=== PATIENT | male | born 1965 | race Caucasian/White ===

== ENCOUNTER 2022-12-20 12:32 | Outpatient (OUT) | payer OTHER, SELFPAY ==
[2022-12-20 13:01] LABS: Basophils Absolute Auto 0.1 10^3/uL (0.0-0.1); Eosinophils Absolute Auto 0.2 10^3/uL (0.0-0.7); Eosinophils Percent Auto 2.7 % (0.9-7.0); Hematocrit 34.3 % (42.0-54.0); Hemoglobin 11.3 g/dL (14.0-18.0); Immature Granulocytes Abs Auto 0.02 10^3/uL (0.00-0.03); Immature Granulocytes Pct Auto 0.3 % (0.0-0.5); Lymphocytes Absolute Auto 1.8 10^3/uL (1.2-3.8); Lymphocytes Percent Auto 28.3 % (20.5-60.0); Mean Corpuscular HGB Conc 32.9 g/dL (29.9-35.2); Mean Corpuscular Hemoglobin 30.5 pg (25.9-34.0); Mean Corpuscular Volume 92.5 fL (80.0-94.0); Mean Platelet Volume 9.3 fL (9.5-13.5); Monocytes Absolute Auto 0.4 10^3/uL (0.3-0.8); Monocytes Percent Auto 6.3 % (1.7-12.0); Neutrophils Absolute Auto 3.8 10^3/uL (1.4-6.5); Neutrophils Percent Auto 61.4 % (43.0-75.0); Platelet Count 265 10^3/uL (150-450); Red Blood Count 3.71 10^6/uL (4.70-6.10); Red Cell Distribution Width 13.5 % (11.0-15.0); White Blood Count 6.2 10^3/uL (4.0-11.0)
[2022-12-20 13:27] LABS: Alanine Aminotransferase 21 U/L (16-63); Albumin Globulin Ratio 1.1; Albumin Level 3.4 g/dL (3.4-5.0); Alkaline Phosphatase 93 U/L (46-116); Anion Gap 10.6; Aspartate Amino Transferase 17 U/L (15-37); BUN Creatinine Ratio 13.9; Bilirubin Total 0.3 mg/dL (0.2-1.0); Calcium 8.7 mg/dL (8.5-10.1); Carbon Dioxide 27.2 mmol/L (21.0-32.0); Chloride 107 mmol/L (98-107); Estimated GFR (African America >60 (>=60); Estimated GFR (Non-African Ame >60 (>=60); Globulin 3.2 g/dL; Glucose 87 mg/dL (74-106); Potassium 3.8 mmol/L (3.5-5.1); Sodium 141 mmol/L (136-145); Total Protein 6.6 g/dL (6.4-8.2)
[2022-12-20 14:31] LABS: Erythrocyte Sedimentation Rate 20 mm/hr (<=20)
== END 2022-12-20 12:33 | disposition home or self-care (01) ==
LOC: LAB 12:38
PROVIDERS: PCP Nurse Practitioner Family; Visit Provider Internal Medicine Rheumatology
DX: M19.90 Unspecified osteoarthritis, unspecified site (principal); Z79.899 Other long term (current) drug therapy; L40.50 Arthropathic psoriasis, unspecified
CPT/HCPCS: 36415; 80053; 85025; 85652

== ENCOUNTER 2024-08-03 16:23 | Outpatient (OUT) | payer OTHER, SELFPAY ==
--- NOTE | 2024-08-03 16:41 | XR_ITS ---
[address] [address] Patient Name: LIAN XAVEIR MRN: [id number] date: 1965 Sex: M Assigned Patient Location: RAD Current Patient Location: [facility] Accession/Order Number: [id number] Exam Date: 08/03/2024 16:44 Report Date: 08/03/2024 16:45 At the request of: MALCOM KINCAID Procedure: XR chest 2V Plain film chest Single view HISTORY: Subacute cough COMPARISON: 07/13/2022 FINDINGS: SUPPORT DEVICES: None POSTSURGICAL CHANGES: Wcmaee-t-Txjn unchanged HEART: Within normal limits PULMONARY ROBIN: Within normal limits MEDIASTINUM: Unremarkable LUNGS AND PLEURA: No acute lung process, pleural effusion or pneumothorax identified. BONY STRUCTURES: Intact ADDITIONAL FINDINGS None XR/XR chest 2V IMPRESSION: No acute process. Impression dictated by: Tristin Lott M.D. 08/03/2024 4:45 PM Dictation Location: [place] Electronically authenticated by: [id number] Y Date: 08/03/2024 16:45
== END 2024-08-03 16:24 | disposition home or self-care (01) ==
LOC: RAD 16:31
PROVIDERS: PCP Nurse Practitioner Family; Visit Provider Nurse Practitioner Family
DX: R05.2 Subacute cough (principal)
CPT/HCPCS: 71046

== ENCOUNTER 2024-08-22 11:42 | Emergency (ER) | payer OTHER, SELFPAY ==
--- OUTSIDE RECORDS SUMMARY | 2024-07-31 10:25 | XMS_ITS ---
Author Organization The [facility] in [place] Address [address] [place] [address] Care Team Providers Care Senior Sales Manager Name Role Phone Krystle Quiroz Primary Care Provider [phone] REASON FOR VISIT cough Encounters Encounter Location Date Provider Diagnosis [facility] [address] [place] [address] 07/31/2024 Krystle Quiroz Plan Of Treatment No Information Progress Notes * Miesha MCDONALDOB:1965 (58 yo M)Acc No.[id number]:07/31/2024 Patient: Darrion ANN :1965 A ge:58 Y S ex:Male Address:[address] [place], [address] * true * Date: Generated for Kb singh/Sameer/eTransmitting on: 0 08/22/2024 11:48 AM EDT
--- OUTSIDE RECORDS SUMMARY | 2024-08-03 11:45 | XMS_ITS ---
Author Organization The [facility] in [place] Address [address] [place] [address] Care Team Providers Care Elevator Constructor Helper Name Role Phone Krystle Quiroz Primary Care Provider Allergies Allergen (clinical drug ingredient) Drug/Non Drug Allergy documented on EMR Reaction Allergy Type Onset Date Status Chantix (varenicline) Unknown Drug Allergy Active Results Component Value Reference Range Notes XR chest 2V Reviewed date:08/04/2024 08:52:47 AM Interpretation: Performing Lab: Notes/Report: Source Facility: [place] [id number] XRay Report Signed Patient: LIAN MCDONALD MR#: [id number] : 1965 Acct:[id number] Age/Sex: 58 / M ADM Date: 08/03/24 Loc: RAD Attending Dr: KRYSTLE QUIROZ Ordering Physician: KRYSTLE QUIROZ Date of Service: 08/03/24 Procedure(s): XR chest 2V Accession Number(s): [id number] cc: KRYSTLE QUIROZ [place] [id number] Patient Name: LIAN MCDONALD MRN: [id number] date: 1965 Sex: M Assigned Patient Location: RAD Current Patient Location: RAD Accession/Order Number: [id number] Exam Date: 08/03/2024 16:44 Report Date: 08/03/2024 16:45 At the request of: KRYSTLE QUIROZ Procedure: XR chest 2V Plain film chest Single view HISTORY: Subacute cough COMPARISON: 07/13/2022 FINDINGS: SUPPORT DEVICES: None POSTSURGICAL CHANGES: Kibvea-d-Dvmh unchanged HEART: Within normal limits PULMONARY ROBIN: Within normal limits MEDIASTINUM: Unremarkable LUNGS AND PLEURA: No acute lung process, pleural effusion or pneumothorax identified. BONY STRUCTURES: Intact ADDITIONAL FINDINGS None XR/XR chest 2V IMPRESSION: No acute process. Impression dictated by: Tristin Lott M.D. 08/03/2024 4:45 PM Dictation Location: [place] [address] Electronically authenticated by: [id number] Y Date: 08/03/2024 16:45 Dictated By: Tristin Lott D.O. Signed By: 08/03/241647 DD/ 44 TD/TT: Vp Account Director: [place] [address] XRay Report Signed Patient: BRENNEN MCDONALD MR#: [id number] : 1965 Acct:[id number] Age/Sex: 58 / M ADM Date: 08/03/24 Loc: RAD Attending Dr: KRYSTLE QUIROZ Ordering Physician: KRYSTLE QUIROZ Date of Service: 08/03/24 Procedure(s): XR chest 2V Accession Number(s): [id number] cc: KRYSTLE QUIROZ [place] [address] Patient Name: LIAN MCDONALD MRN: [id number] date: 1965 Sex: M Assigned Patient Location: RAD Current Patient Location: RAD Accession/Order Numb er: [id number] Exam Date: 08/03/2024 16:44 Report Date: 08/03/2024 16:45 At the request of: KRYSTLE QUIROZ Procedure: XR chest 2V Plain film chest Single view HISTORY: Subacute cough COMPARISON: 07/13/2022 FINDINGS: SUPPORT DEVICES: None POSTSURGICAL CHANGES : Fvpdtt-w-Dkvz unchanged HEART: Within normal limits PULMONARY ROBIN: With in normal limits MEDIASTINUM: Unremarkable LUNGS AND PLEURA: No acute lung process, pleural effusion or pneumothorax identified. BONY STRUCTURES: Intact ADDITIONAL FINDINGS None X R/XR chest 2V IMPRESSION: No acute process. Impression dictated by: Tristin Lott M.D. 08/03/2024 4:45 PM Dictation Location: [place] [address] [facility] auth nticated by: [id number] Y Date: 08/03/2024 16:45 Dictated By: Tristin Lott D.O. Signed By: 08/03/241647 DD/ 44 TD/TT: Vp Account Director: Reason For Referral Reason arthritis Diagnosis 1 Arthritis (M19.90) Diagnosis 2 Psoriasis (L40.9) Referral Organization [facility] Referring Provider First Name Krystle Referring Provider Last Name Richie Referring Provider Speciality Family Med ayse Referred Provider Vinod Corado Jr Referred Provider Specialty Rheumatology Referral Priority Routine REASON FOR VISIT cough meds not working Social History Tobacco Use: Social History Observation Description Date Details (start date - stop date) Former Smoker NA - NA Tobacco Control (Standard) Question Answer Notes Tobacco use: Former smoker How long has it been since you last smoked? 5-10 years Problems Problem Type SNOMED Code ICD Code Onset Dates Problem Status W/U Status Risk Notes Problem Arthritis (2301260) Arthritis (M19.90) Active confirmed Problem Psoriasis (2945105) Psoriasis (L40.9) Active confirmed Vital Signs Weight 180 lbs 08/03/2024 Height 5ft 9.5in in 08/03/2024 Blood pressure systolic 144 mm Hg 08/04/19 25 Blood pressure diastolic 84 mm Hg 025 BMI 26.2 kg/m2 08/03/2024 Encounters Encounter Location Date Provider Diagnosis [facility] [address] [place] [address] 08/03/2024 Krystle Quiroz Subacute cough R05.2 ; Arthritis M19.90 and Psoriasis L40.9 Assessments Encounter Date Diagnosis (ICD Code) Assessment Notes Treatment Notes Treatment Clinical Notes Section Notes 08/03/2024 Subacute cough (ICD-10 - R05.2) worse when talks no coughing when watching tv, sleeping at night ENT next? 08/03/2024 Arthritis (ICD-10 - M19.90) 08/03/2024 Psoriasis (ICD-10 - L40.9) 08/03/2024 Other referral [facility] Plan Of Treatment Treatment Notes Assessment Notes Subacute cough worse when talks no coughing when watching tv, sleeping at night ENT next? Other referral [facility] Referrals Referral Date Details 08/04/2024 08/04/2024, linavivian margyVinod Jr [facility] Next Appt Details Follow Up: prn, Reason: Progress Notes * Miesha MCDONALDOB:1965 (58 yo M)Acc No.[id number]:08/03/2024 Progress Note Patient: Lian ANN Provider: Katherine Quiroz ([facility]), ADVERTISING MANAGER :1965 A ge:58 Y S ex:Male Date:08/03/2024 Address:[address] [place] [address] [place], [place] Check In:03:37 PM ESTCheck O ut:04:12 PM EST Subjective: * Chief Complaints: * 1 . Cough meds not working. * HPI: G eneral: Patient presents with c/o dry-hacky cough since June. He has taken multiple rounds of abx, steroids and cough supressants and nothing has worked. He also states he noticed a big improvement with his artritis pain when taking the steroids for the cough and would like to discuss that. lastly he is requesting a derm consult fo rhis psoriasis. * ROS: E ENT: sore throat d enies. n rosy congestion d enies.?ear ache d enies. P ost nasal drainage d enies. G eneral/Constitutional: Sweats: D enies. F atigue d enies. F atigue or Weakness d enies. F ever or Chills d enies. C ardiovascular: Shortness of Breath w/lying flat d enies. S welling of Feet/Ankles/Hands d enies. L ightheadedness/dizziness d enies. C hest tightness/ heavy pressure d enies. S welling of legs, ankles, or feet d enies. W aking up with shortness of breath d enies. C hest pain d enies. P alpitations d enies. R espiratory: Chronic or frequent cough a dmits. P roductive cough d enies. C hest pain d enies. S putum production d enies. W heezing d enies. M usculoskeletal: Joint pain a dmits. J oint Stiffness a dmits, Normal from arthirtis. W eakness of muscles d enies. A rthritis a dmits hands and feet. * Active Problem List M19.90 Arthritis Modified On:08/04/2024W/U Status:confirmed L40.9 Psoriasis Modified On:08/04/2024W/U Status:confirmed * Medical History: H istory of fracture left wrist x 2, History of psoriasis, History of urinary calculus, History of arthralgias in multiple sites, Colostomy. * Surgical History: H istory of cystoscopy 1996 , History of vasectomy 1995 . * Hospitalization/Major Diagno stic Procedure: D enies Past Hospitalization. * Family History: M igrated Family History:: Family history of heart disease;Family history of cancer;. * Social History: T obacco Use: T obacco Control (Standard) T obacco use: F ormer smoker H ow long has it been since you last smoked??5-10 years * Medications: D iscontinued Azithromycin 250 MG Tablet 2 tabs today then 1 tab Orally daily , Discontinued Benzonatate 200 MG Capsule 1 capsule as needed Orally Three times a day , Discontinued Cephalexin 500 MG Capsule 2 capsule Orally BID , Discontinued predniSONE 20 MG Tablet 3 tablets Orally Once a day , Medication List reviewed and reconciled with the patient * Allergies: C hantix (varenicline): Allergy. Objective: * Vitals: W t:180lbs, Ht: 5ft 9.5in, BP:144/84mm Hg, BMI:26.2Index, Ht-cm: 176.53 cm, Wt-k.65 kg. * Examination: P hysical Exam: GENERAL: w ell developed, well nourished, in no acute distress. HEAD: n ormocephalic/atraumatic. EYES: p upils equal, round and reactive to light, conjunctivae and sclerae normal. NOSE: n o deformity, discharge, inflammation, or lesions.? LUNGS: n ormal respiratory effort and clear to auscultation, no wheezes, rales, or rhonchi, good air exchange. CARDIO: r egular rate and rhythm, normal S1 and S2. PULSES: n ormal capillary refill. NEUROLOGIC: g rossly normal. SKIN: p soriasis patches to knees and elbows. MENTAL STATUS: a lert and oriented x3, normal mood and affect. Assessment: * Assessment: 1. S ubacute cough - R05.2 (Primary) 2 . A rthritis - M19.90 ?3. P soriasis - L40.9 Plan: * Treatment: 2. A rthritis Referral To:Vinod Esparza [facility] Reason:arthritis 3. P soriasis Referral To:Vinod Esparza [facility] Reason:arthritis 4. O thers Notes: referral [facility] * Preventive Medicine: Screenings/Counseling: B UT ACTION PLAN Above Normal BMI Follow-up D ietary management education, guidance, and counseling * Follow Up: p rn * * Electronically signed by Skye Quiroz , SHERICE, S IRON WORKER.ADVERTISING MANAGER.[id number] on 08/04/2024 at 03:59 PM EDT Sign off status: Completed Visit Status: C HK (Check Out) true * Provider: Katherine Quiroz ([facility]), ADVERTISING MANAGER Date: 0 08/03/2024 Generated for Kb singh/Sameer/Laxmiitting on: 0 08/22/2024 11:49 AM EDT History and Physical Notes * HPI (History of Present Illness) Category Sub-Category Detail Notes Category Not es General Patient present s with c/o dry-hacky cough since June. He has taken multiple rounds of abx, steroids and cough supressants and nothing has worked. He also states he noticed a big improvement with his artritis pain when taking the steroids for the cough and would like to discuss that. lastly he is requesting a derm consult fo rhis psoriasis. Examination Category Sub-Category Detail Notes Category Not es Physical Exam GENERAL: well developed, well nourished, in no acute distress HEAD: normocephalic/atraum atic EYES: pupils equal, round and reactive to light, conjunctivae and sclerae normal NOSE: no deformity, discha rge, inflammation, or lesions NECK: CHEST: LUNGS: normal respiratory e ffort and clear to auscultation, no wheezes, rales, or rhonchi, good air exchange CARDIO: regular rate and rhy thm, normal S1 and S2 PULSES: normal capillary ref ill MUSCULOSKELETAL: EXTREMITY: NEUROLOGIC: grossly normal SKIN: psoriasis patches to knees and elbows LYMPH NODES: MENTAL STATUS: alert and oriented x 3, normal mood and affect Consultation Request Notes Referral Date Referring Provider Referred Provider Not es 08/04/2024 Krystle Quiroz David Jr arthr itis
[2024-08-22] VITALS (12 sets, daily range): BP systolic 147–150; BP diastolic 88–95; PULSE 65–100; TEMP 36.3; O2SAT 94–100; BMI 24.4
--- OUTSIDE RECORDS SUMMARY | 2024-08-22 11:48 | XMS_ITS | Encounter Summary ---
Author Organization [facility] Address [address] [place], [place] [address] Care Team Providers Care Channel Development Manager Name Role Phone Nhan Lorenzo Primary Care Provider Source Comments In the event this information is protected by the Federal Confidentiality of Alcohol and Drug AbusePatient Records regulations: The Federal rules restrict any use of the information to criminally investigate or prosecute any alcohol or drug abuse patient.[facility] Encounter Details Date Type Department Care Team (Late st Contact Info) Description 07/07/2024 Patient Msg Hematology/Oncology [address] [facility] [place] [place], [place] [id number] Mohit Mann MD [address] [place], [facility] Appointment Cancellation Request Social History Tobacco Use Types Packs/Day Years Used Date Smoking Tobacco: Former Cigarettes 1.5 22 Smokeless Tobacco: Current Snuff Alcohol Use Standard Drinks/Week Comments Yes 8 (1 standard drink = 0.6 oz pur e alcohol) daily PHQ-2 Answer Date Recorded PHQ-2 score 0 05/16/2018 Area Deprivation Index Answer Date Willis rded National Score (1-100), lower number is lower ri sk Not on file 02/08/2020 State Score (1-10), lower number is lower risk N ot on file 02/08/2020 Data from: https://www.neighborhoodatlas.medicine.[facility].edu/. Last address used for calculation Not on file 02/08/2020 Sex and Gender Information Value Date Recorded Sex Assigned at Male 06/12/2023 5:12 PM EDT Legal Sex Male 2:58 PM EST Gender Identity Male 06/12/2023 5:12 PM EDT Sexual Orientation Straight 06/12/2023 5: 12 PM EDT documented as of this encounter Functional Status * Are you deaf or do you have serious difficulty hearing? Answer Date of Assessment Author No 08/08/2016 12:26 PM EDT Margaret Bowden RN * Are you blind or do you have serious difficulty seeing, even when wearing glasses? Answer Date of Assessment Author No 08/08/2016 12:26 PM EDT Margaret Bowden RN * Do you have serious difficulty walking or climbing stairs? Answer Date of Assessment Author No 08/08/2016 12:26 PM EDT Margaret Bowden RN * Do you have difficulty dressing or bathing? Answer Date of Assessment Author No 08/08/2016 12:26 PM EDT Margaret Bowden RN * Because of a physical, mental, or emotional condition, do you have difficulty doing errands alone such as visiting a doctor's office or shopping? Answer Date of Assessment Author No 08/08/2016 12:26 PM EDT Margaret Bowden RN documented as of this encounter Mental Status * Because of a physical, mental, or emotional condition, do you have serious difficulty concentrating, remembering, or making decisions? Answer Entry Date Author No 08/08/2016 12:26 PM TERAT Margaret Bowden RN documented in this encounter Plan of Treatment Not on file documented as of this encounter Visit Diagnoses Not on filedocumented in this encounter Care Teams Channel Development Manager Relationship Specialty Start Date End Date Nhan Lorenzo DO PCP - General Family Medicine 03/20/16 documented as of this encounter
--- OUTSIDE RECORDS SUMMARY | 2024-08-22 11:48 | XMS_ITS | Patient Health Record ---
Author Organization The [facility] in [place] Address [address] [place] [address] Care Team Providers Care Street Car Mechanic Name Role Phone Krystle Quiroz Primary Care Provider Ramon Hanson [phone] Allergies Allergen (clinical drug ingredient) Drug/Non Drug Allergy documented on EMR Reaction Allergy Type Onset Date Status Chantix (varenicline) Unknown Drug Allergy Active Results Component Value Reference Range Notes XR chest 2V Reviewed date:08/04/2024 08:52:47 AM Interpretation: Performing Lab: Notes/Report: Source Facility: [address] [address] XRay Report Signed Patient: LIAN MCDONALD MR#: [id number] : 1965 Acct:[id number] Age/Sex: 58 / M ADM Date: 08/03/24 Loc: RAD Attending Dr: KRYSTLE QUIROZ Ordering Physician: KRYSTLE QUIROZ Date of Service: 08/03/24 Procedure(s): XR chest 2V Accession Number(s): [id number] cc: KRYSTLE QUIROZ [place] [id number] Patient Name: LIAN MCDONALD MRN: [id number] date: 1965 Sex: M Assigned Patient Location: RAD Current Patient Location: RAD Accession/Order Number: [id number] Exam Date: 08/03/2024 16:44 Report Date: 08/03/2024 16:45 At the request of: KRYSTLE QUIROZ Procedure: XR chest 2V Plain film chest Single view HISTORY: Subacute cough COMPARISON: 07/13/2022 FINDINGS: SUPPORT DEVICES: None POSTSURGICAL CHANGES: Anuzxq-d-Urml unchanged HEART: Within normal limits PULMONARY ROBIN: Within normal limits MEDIASTINUM: Unremarkable LUNGS AND PLEURA: No acute lung process, pleural effusion or pneumothorax identified. BONY STRUCTURES: Intact ADDITIONAL FINDINGS None XR/XR chest 2V IMPRESSION: No acute process. Impression dictated by: Tristin Lott M.D. 08/03/2024 4:45 PM Dictation Location: [place] [address] Electronically authenticated by: [id number] Y Date: 08/03/2024 16:45 Dictated By: Tristin Lott D.O. Signed By: 08/03/241647 DD/ 44 TD/TT: Slicer Machine Operator: [place] [address] XRay Report Signed Patient: BRENNEN MCDONALD MR#: [id number] : 1965 Acct:[id number] Age/Sex: 58 / M ADM Date: 08/03/24 Loc: RAD Attending Dr: KRYSTLE QUIROZ Ordering Physician: KRYSTLE QUIROZ Date of Service: 08/03/24 Procedure(s): XR chest 2V Accession Number(s): [id number] cc: KRYSTLE QUIROZ [address] [address] Patient Name: LIAN MCDONALD MRN: [id number] date: 1965 Sex: M Assigned Patient Location: [facility] Current Patient Location: RAD Accession/Order Numb er: [id number] Exam Date: 08/03/2024 16:44 Report Date: 08/03/2024 16:45 At the request of: KRYSTLE QUIROZ Procedure: XR chest 2V Plain film chest Single view HISTORY: Subacute cough COMPARISON: 07/13/2022 FINDINGS: SUPPORT DEVICES: None POSTSURGICAL CHANGES : Rwhomh-r-Lmeq unchanged HEART: Within normal limits PULMONARY ROBIN: With in normal limits MEDIASTINUM: Unremarkable LUNGS AND PLEURA: No acute lung process, pleural effusion or pneumothorax identified. BONY STRUCTURES: Intact ADDITIONAL FINDINGS None X R/XR chest 2V IMPRESSION: No acute process. Impression dictated by: Tristin Lott M.D. 08/03/2024 4:45 PM Dictation Location: [place] [address] [facility] aut[facility] nticated by: [id number] Y Date: 08/03/2024 16:45 Dictated By: Tristin Lott D.O. Signed By: 08/03/241647 DD/ 44 TD/TT: Slicer Machine Operator: Reason For Referral Reason arthritis Diagnosis 1 Arthritis (M19.90) Diagnosis 2 Psoriasis (L40.9) Referral Organization [facility] Referring Provider First Name Krystle Referring Provider Last Name Richie Referring Provider [facility] ayse Referred Provider Vinod Corado Jr Referred Provider Specialty Rheumatology Referral Priority Routine Social History Tobacco Use: Social History Observation Description Date Details (start date - stop date) Former Smoker NA - NA Tobacco Control (Standard) Question Answer Notes Tobacco use: Former smoker How long has it been since you last smoked? 5-10 years AUDIT-C (Standard) Question Answer Notes Did you have a drink containing alcohol in the p ast year? No Points 0 Interpretation Negative Problems Problem Type SNOMED Code ICD Code Onset Dates Problem Status W/U Status Risk Notes Problem Psoriasis (4971827) Psoriasis (L40.9) Active confirmed Problem Arthritis (6280844) Arthritis (M19.90) Active confirmed Vital Signs Blood pressure diastolic 84 mm Hg 08/03/2024 Height 5ft 9.5in in 08/03/2024 Blood pressure systolic 144 mm Hg 08/03/2024 Weight 180 lbs 08/03/2024 BMI 26.2 kg/m2 08/03/2024 Encounters Encounter Location Date Provider Diagnosis [facility] [address] [place] [address] 07/13/2024 Ramon Hanson [facility] [address] [place] [address] 07/24/2024 Krystle Quiroz [facility] [address] [place] [address] 07/31/2024 Krystle Quiroz [facility] [address] [place] [facility] [address] 08/04/2024 Krystle Quiroz [facility] [address] [place] [facility] [place] [address] 07/08/2024 Ramon Hanson Acute bronchitis, unspecified organism J20.9 [facility] [address] [place] [facility] [place] [address] 08/03/2024 Krystle Quiroz Subacute cough R05.2 ; Arthritis M19.90 and Psoriasis L40.9 Assessments Encounter Date Diagnosis (ICD Code) Assessment Notes Treatment Notes Treatment Clinical Notes Section Notes 07/08/2024 Acute bronchitis, unspecified organism (ICD-10 - J20.9) Rest and drink more liquids, especially water. You may use a humidifier or vaporizer to help keep the drainage moist. Zlqt-wqh-fvzfyzi Nasal Saline may help the stuffy and runny nose. Use Ibuprofen and or Tylenol as needed for fever, chills, body aches or pain. Children 5 years old should not be given pcnk-oer-atclfhf cough and cold medications such as guaifenesin and dextromethorphan. If you're over age 5, you may try dfnr-rcq-yefkzxz cold medications such as guaifenesin and dextromethorphan, or multi-symptom cold reliever such as Dayquil to help reduce the symptoms. Antibiotics have been prescribed. You should take these until completed and follow the directions. Antibiotics can sometimes cause upset stomach, and in rare cases, serious allergic reactions or serious gastrointestinal problems. If you start having severe abdominal pain, severe vomiting, or bloody diarrhea, you should be reevaluated by your physician or urgent care immediately. Follow up with your Primary Care Provider or return to clinic if symptoms do not improve within 3-5 days. If you develop severe symptoms such as shortness of breath, repeated vomiting, coughing up blood, or chest pain you should go to the emergency room or call 911 08/03/2024 Subacute cough (ICD-10 - R05.2) worse when talks no coughing when watching tv, sleeping at night ENT next? 08/03/2024 Arthritis (ICD-10 - M19.90) 08/03/2024 Psoriasis (ICD-10 - L40.9) 08/03/2024 Other referral [facility] Plan Of Treatment No Information Insurance Providers Payer Name Payer Address Payer Phone Subscriber Number Group Number Insured Name Patient Relationship to Insured Coverage Start Date Coverage End Date [employer] [address] [place] [phone] [id number] Lian Mcdonald Self - patient is the insured Medical (General) History Medical History History ICD Code History of fracture left wrist x 2 History of psoriasis History of urinary calculus History of arthralgias in multiple sites colostomy Surgical History Surgery Date(Month/Year) History of cystoscopy 1996 History of vasectomy 1996
--- OUTSIDE RECORDS SUMMARY | 2024-08-22 11:48 | XMS_ITS | Clinical Summary ---
Author Organization [facility] Address [address] [place] [address] Care Team Providers Care Lifeguard Name Role Phone Nhan Lorenzo DO Primary Care Provider [phone] Social History Tobacco Use Types Packs/Day Years Used Date Smoking Tobacco: Never Assessed Sex and Gender Information Value Date Recorded Sex Assigned at Not on file Legal Sex Male 10:58 AM EST Gender Identity Not on file Sexual Orientation Not on file Plan of Treatment Not on file Insurance [employer] Care Teams Lifeguard Relationship Specialty Start Date End Date Nhan Lorenzo DO [address] [place], [place] [id number] PCP - General Family Medicine 12/30/19
--- OUTSIDE RECORDS SUMMARY | 2024-08-22 11:49 | XMS_ITS ---
Author Organization [facility] Address [address] [place], [place] [id number] Care Team Providers Care Rap Artist Name Role Phone Nhan Lorenzo DO Primary Care Provider Active Problems Problem Noted Date Diagnosed Date Post-op pain 08/08/[address] 08/08/2016 Rectal cancer 04/05/2016 Current Treatment and Therapy Plans No current plan information found. Past Treatment and Therapy Plans ONCOLOGY REGIMEN Plan Name Start Date Discontinue Date Treatment Medications Discontinue Reason Plan Provider Cycles MODIFIED FOLFOX 6 - OXALIPLATIN 85 D1 5FU 400 IVP D1 5FU 2400 CADD OVER 46 HRS - Q14D 09/12/19 17 01/20/2017 fluorouracil (ADRUCIL)fluorouracil iv infusion CASSETTE (ADRUCIL)with rateleucovorin iv piggybackoxaliplatin iv piggyback in D5W 500 mL (ELOXATIN) Not Tolerated Benny Das 6 of 12 cycles started
--- OUTSIDE RECORDS SUMMARY | 2024-08-22 11:49 | XMS_ITS | Encounter Summary ---
Author Organization [facility] Address [address] [place] [address] Care Team Providers Care Concrete Floater Name Role Phone Bj, Nhan Avalos DO Primary Care Provider Source Comments In the event this information is protected by the Federal Confidentiality of Alcohol and Drug AbusePatient Records regulations: The Federal rules restrict any use of the information to criminally investigate or prosecute any alcohol or drug abuse patient.[facility] Encounter Details Date Type Department Care Team (Late st Contact Info) Description 08/22/2017 Patient Msg Hematology/Oncology [address] [place] [address] [place] [address] Benny Das [address] [place] [id number] RE: Appointment Cancellation Request Social History Tobacco Use Types Packs/Day Years Used Date Smoking Tobacco: Former Cigarettes 1.5 22 Smokeless Tobacco: Current Snuff Alcohol Use Standard Drinks/Week Comments Yes 8 (1 standard drink = 0.6 oz pur e alcohol) daily Sex and Gender Information Value Date Recorded [...] on filedocumented in this encounter Care Teams Concrete Floater Relationship Specialty Start Date End Date Nhan Lorenzo DO PCP - General Family Medicine 03/20/16 documented as of this encounter
--- OUTSIDE RECORDS SUMMARY | 2024-08-22 11:49 | XMS_ITS | Clinical Summary ---
Author Organization [facility] Address [address] [place] [address] Care Team Providers Care Block Sawyer Name Role Phone Unavailable Primary Care Provider Unavailabl e Social History Tobacco Use Types Packs/Day Years Used Date Smoking Tobacco: Never Assessed Sex and Gender Information Value Date Recorded Sex Assigned at Not on file Legal Sex Male 7:38 PM EDT Gender Identity Not on file Sexual Orientation Not on file Last Filed Vital Signs Vital Sign Reading Time Taken Comments Blood Pressure 132/80 10/19/2020 12:00 PM EDT Pulse - - Temperature - - Respiratory Rate - - Oxygen Saturation - - Inhaled Oxygen Concentration - - Weight 78 kg (172 lb) 10/19/2020 12:00 PM EDT Height 175.3 cm (5' 9 ) 10/19/2020 12:00 PM EDT Body Mass Index 25.4 10/19/2020 12:00 PM EDT Plan of Treatment Not on file
--- OUTSIDE RECORDS SUMMARY | 2024-08-22 11:49 | XMS_ITS | Encounter Summary ---
Author Organization [facility] Address [address] [place] [address] Care Team Providers Care Compliance Investigator Name Role Phone BjNhan DO Primary Care Provider Source Comments In the event this information is protected by the Federal Confidentiality of Alcohol and Drug AbusePatient Records regulations: The Federal rules restrict any use of the information to criminally investigate or prosecute any alcohol or drug abuse patient.[facility] Encounter Details Date Type Department Care Team (Late st Contact Info) Description 08/22/2017 Patient Msg Hematology/Oncology [address] [place] [address] [place] [address] Benny Das [address] [place], [place] [id number] Appointment Cancellation Request Social History Tobacco Use [...] on filedocumented in this encounter Care Teams Compliance Investigator Relationship Specialty Start Date End Date Nhan Lorenzo DO PCP - General Family Medicine 03/20/16 documented as of this encounter
--- OUTSIDE RECORDS SUMMARY | 2024-08-22 11:49 | XMS_ITS | Clinical Summary ---
Author Organization [facility] Address [address] [place] [address] Care Team Providers Care Silver Designer Name Role Phone Bj, Nhan Robbie Primary Care Provider Allergies No known active allergies Medications acetaminophen (TYLENOL EXTRA STRENGTH) 500 mg tablet Take 500 mg by mouth every 8 hours as needed. Active iv contrast (will be provided with radiology test) CT Chest ABD/PEL-Inject, intravenously, once for 1 dose.No IV access, insert saline lock prior to the beginning of sedation, infusion, injection of imaging exam. Discontinue saline lock post exam. If Pt. has a central line or IVAD, may access for administration according to line specific nursing protocol. Once exam is complete flush line and de-access according to line specific nursing protocol in the CT contrast administration guidelines link. 1 Each 0 Active enteric contrast (will be provided with radiology test) For CT CHESTABD/PEL W IVCON Routine order Administer, As Directed One Time Only, via Oral, Rectal, both Oral and Rectal, Enteric Tube, Stoma or Indwelling Catheter, Enteric Contrast as designated per enteric contrast guidelines 1 Each 0 Active Active Problems Problem Noted Date Diagnosed Date Post-op pain 08/08/[address] 08/08/2016 Rectal cancer 04/05/2016 Encounters Date Type Department Care Team Description 07/07/2024 Patient Msg Hematology/Oncology [address] [facility] [place] [address] Mohit Mann MD Appointment Cancellation Request from Last 3 Months Family History Medical History Relation Comments Cancer Father Bladder Colon Cancer Mother d. 70 esophageal cancer Paternal Grandfather Relation Status Comments Brother Alive Daughter 1 Alive Daughter 2 Alive Father Maternal Grandfather Maternal Grandmother Mother Paternal Grandfather Paternal Grandmother Sister 1 Alive Sister 2 Alive Social History Tobacco Use Types Packs/Day Years [...] N ot on file 02/08/2020 Data from: https://[email or web address].[email or web address]/. Last address used for calculation Not on file 02/08/2020 Sex and Gender Information Value Date Recorded Sex Assigned at Male 06/12/2023 5:12 PM EDT Legal Sex Male 2:58 PM EST Gender Identity Male 06/12/2023 5:12 PM EDT Sexual Orientation Straight 06/12/2023 5: 12 PM EDT Last Filed Vital Signs Vital Sign Reading Time Taken Comments Blood Pressure 162/88 12/18/2019 3:16 PM EDT Pulse 74 12/18/2019 3:16 PM EDT Temperature 36.2 C (97.1 F) 12/18/2019 3:16 PM EDT Respiratory Rate 18 12/18/2019 3:16 PM EDT Oxygen Saturation 100% 12/18/2019 3:16 PM EDT Inhaled Oxygen Concentration - - Weight 77.3 kg (170 lb 6.4 oz) 12/18/2019 3:16 P M EDT Height 177.4 cm (5' 9.84 ) 12/18/2019 3:16 PM ED T Body Mass Index 24.56 12/18/2019 3:16 PM EDT Plan of Treatment Health Maintenance Due Date Last Done Comments Anxiety Screening 1984 Depression Screening 1984 HIV Screening 1984 Hepatitis C Screening 1984 DTaP,Tdap,Td Vaccine (1 - Tdap) 1985 Hepatitis B Vaccine (1 of 3 - 19+ 3-dose series) [address] Colonography 10/04/2011 Cologuard (FIT-DNA) 10/04/2011 Colonoscopy 10/04/2011 Fecal Occult Blood 10/04/2011 Prostate Cancer Screening Discussion 10/04/2011 Pneumococcal Vaccine: 50+ (1 of 1 - PCV) 2016 Shingrix Vaccine (1 of 2) 2016 Colorectal Cancer Screening 04/11/2021 Sigmoidoscopy 04/11/2021 04/11/2016 Diabetes Screening 12/17/2022 12/18/2019, 0 05/16/2018, 09/25/2016, Additional history exists Covid-19 Vaccine (2023-2 5 season) 2023 Influenza Vaccine (Season Ended) 2024 Procedures Procedure Name Priority Date/Time Associated Diagnosis Comments COMPREHENSIVE METABOLIC PANEL Routine 12/18/2019 3:12 PM EDT Rectal cancer (HCC) SIGMOIDOSCOPY 04/11/2016 9:47 AM EST from Last 3 Months or Most Recently Relevant to Health Maintenance Results * (ABNORMAL) COMP METABOLIC PANEL (12/18/2019 3:12 PM EDT) Protein, Total 7.4 6.3 - 8.0 g/dL 12/18/2019 3:39 PM EDT [facility] Albumin 4.6 3.9 - 4.9 g/dL 12/18/2019 3:39 PM EDT [facility] Calcium 10.0 8.5 - 10.2 mg/dL 12/18/2019 3:39 PM EDT [facility] Bilirubin, Total 0.4 0.2 - 1.3 mg/dL 12/18/2019 3:39 PM EDT [facility] Alkaline Phosphatase 122(H) 38 - 113 U/L 12/18/2019 3:39 PM EDT [facility] AST 17 14 - 40 U/L 12/18/2019 3:39 PM EDT [facility] Glucose 114(H) 74 - 99 mg/dL 12/18/2019 3:39 PM T [facility] Comment: The [place] Diabetes Association (ADA) provides guidance for cutoff values for fasting glucose and random glucose. The ADA defines fasting as no caloric intake for at least 8 hours. Fasting plasma glucose results between 100 to 125 mg/dL indicate increased risk for diabetes (prediabetes). Fasting plasma glucose results greater than or equal to 126 mg/dL meet the criteria for diagnosis of diabetes. In the absence of unequivocal hyperglycemia, results should be confirmed by repeat testing. In a patient with classic symptoms of hyperglycemia or hyperglycemic crisis, random plasma glucose results greater than or equal to 200 mg/dL meet the criteria for diagnosis of diabetes. Reference: Standards of Medical Care in Diabetes 2016, [place] [employer] Association. Diabetes Care. 2016.39(Suppl 1). BUN 13 9 - 24 mg/dL 12/18/2019 3:39 PM T [facility] Creatinine 0.88 0.73 - 1.22 mg/dL 12/18/2019 3:39 PM T [facility] Sodium 141 136 - 144 mmol/L 12/18/2019 3:39 PM EDT [facility] Potassium 4.2 3.7 - 5.1 mmol/L 12/18/2019 3:39 PM T [facility] Chloride 103 97 - 105 mmol/L 12/18/2019 3:39 PM EDT [facility] CO2 28 22 - 30 mmol/L 12/18/2019 3:39 PM T [facility] Anion Gap 10 9 - 18 mmol/L 12/18/2019 3:39 PM [facility] ALT 18 10 - 54 U/L 12/18/2019 3:39 PM EDT [facility] eGFR- >60 12/18/2019 3:39 PM [facility] eGFR-All Other Races >60 . 12/18/2019 3:39 PM [facility] Comment: eGFR (Estimated GFR) Units of measure: mL/min/1.73 meters squared eGFR is derived from the reexpressed MDRD Study equation using the following parameters: serum creatinine, age, gender and race. The creatinine assay has been calibrated to be traceable to IDMS. An eGFR <60 mL/min/1.73m2 for >3 months is consistent with chronic kidney disease. Refer to KDOQI guidelines for clinical interpretation. In patients with unstable renal function, e.g. those with acute kidney injury, the eGFR may not accurately reflect actual GFR. Blood BLOOD SPECIMEN / Unknown 12/18/2019 3:12 PM EDT 12/18/2019 3:14 PM EDT Angel Bello MD LABORATORY Final Result [address] [address] [facility] [address] * SIGMOIDOSCOPY (04/11/2016 9:47 AM EST) Rig Hand A30 Gastrointestinal Endoscopy Patient Name: Darrion Mcdonald Procedure Date: 04/11/2016 9:47 AM Date of : 1965 Admit Type: Outpatient Age: 50 Gender: Male Note Status: Finalized Attending MD: Emigdio Martin MD Sedation Initiated: None Administered Procedure: Flexible Sigmoidoscopy Indications: Hematochezia Comorbidities No comorbidities Providers: Emigdio Martin MD Patient Profile: This is a 50 year old male. Referring Physician: Medicines: None Complications: No immediate complications. Requesting Provider: Procedure: Pre-Anesthesia Assessment: - Prior to the procedure, a History and Physical was performed, and patient medications and allergies were reviewed. The patient's tolerance of previous anesthesia was also reviewed. The risks and benefits of the procedure and the sedation options and risks were discussed with the patient. All questions were answered, and informed consent was obtained. Prior Anticoagulants: The patient has taken no previous anticoagulant or antiplatelet agents. ASA Grade Assessment: II - A patient with mild systemic disease. After reviewing the risks and benefits, the patient was deemed in satisfactory condition to undergo the procedure. After obtaining informed consent, the scope was passed under direct vision. The Flexible sigmoidoscope was introduced through the anus and advanced to the sigmoid colon. The flexible sigmoidoscopy was accomplished without difficulty. The patient tolerated the procedure well. The quality of the bowel preparation was good. Findings: An infiltrative partially obstructing large mass was found in the rectum. The mass was partially circumferential (involving two-thirds of the lumen circumference). The mass measured five cm in length. In addition, its diameter measured five mm. Oozing was present. It is extending into the anal canal and by LANA inseperable from the top of the sphincter. Impression: - Malignant partially obstructing tumor in the rectum. Removal was not done. - No specimens collected. Estimated Blood Loss: Estimated blood loss: none. Attending Participation: I personally performed the entire procedure without the assistance of a fellow, resident or minister assistant. Scope In: Scope Out: Emigdio Martin MD 04/11/2016 10:44:41 AM This report has been signed electronically. Number of Addenda: 0 Note Initiated On: 04/11/2016 9:47 AM [facility] Anatomical Region Laterality Modality Other 04/11/2016 9:47 AM EST [facility] Provider [facility] Final Result from Last 3 Months or Most Recently Relevant to Health Maintenance Insurance [facility] [place] [id number] Advance Directives Documents on File Type Date Recorded Patient Global Consumer Sector Vice President Expl anation Advance Directive(s) 07/18/2016 3:19 PM Advance Directive(s) 07/18/2016 3:06 PM Care Teams Silver Designer Relationship Specialty Start Date End Date Nhan Lorenzo DO PCP - General Family Medicine 03/20/16
--- OUTSIDE RECORDS SUMMARY | 2024-08-22 11:49 | XMS_ITS | Encounter Summary ---
Author Organization [facility] Address [address] [place], [place] [address] Care Team Providers Care Home Health Aide Caregiver Name Role Phone BjNhan DO Primary Care Provider Source Comments In the event this information is protected by the Federal Confidentiality of Alcohol and Drug AbusePatient Records regulations: The Federal rules restrict any use of the information to criminally investigate or prosecute any alcohol or drug abuse patient.[facility] Encounter Details Date Type Department Care Team (Late st Contact Info) Description 06/20/2018 Patient Msg Hematology/Oncology [address] [place] [address] Sneha Garcia PA-C [address] [place] [address] RE: Appointment Cancellation Request Social History Tobacco Use Types Packs/Day Years Used Date Smoking Tobacco: Former Cigarettes 1.5 22 Smokeless Tobacco: Current Snuff Alcohol Use Standard Drinks/Week Comments Yes 8 (1 standard drink = 0.6 oz pur e alcohol) daily PHQ-2 Answer Date Recorded PHQ-2 score 0 05/16/2018 Sex and Gender Information Value Date Recorded [...] on filedocumented in this encounter Care Teams Home Health Aide Caregiver Relationship Specialty Start Date End Date Nhan Lorenzo DO PCP - General Family Medicine 03/20/16 documented as of this encounter
--- OUTSIDE RECORDS SUMMARY | 2024-08-22 11:49 | XMS_ITS | Encounter Summary ---
Author Organization [facility] Address [address] [place], [place] [id number] Care Team Providers Care Law Office Receptionist Name Role Phone BjNhan DO Primary Care Provider Source Comments In the event this information is protected by the Federal Confidentiality of Alcohol and Drug AbusePatient Records regulations: The Federal rules restrict any use of the information to criminally investigate or prosecute any alcohol or drug abuse patient.[facility] Encounter Details Date Type Department Care Team (Late st Contact Info) Description 04/11/2016 Letters (in) Colorectal Surgery [address] [place] [address] Robles Martin MD [address] [id number] Social History Tobacco Use Types Packs/Day Years [...] PM EDT documented as of this encounter Miscellaneous Notes * Letter - Robles Martin - 04/11/2016 12:00 AM EST April 11, 2016 Bnenysantosh Das NAME: Darrion Mcdonald CLINIC NO.: [id number] DATE OF SERVICE: 04/11/[address] Das: I had the privilege to meet your patient, Darrion Mcdonald, in my colorectal clinic on April 11, 2016. As you know, he is a 50-year-old gentleman with a recent history of rectal cancer. His family history is significant for colon cancer as well where his mom was diagnosed at the age of 70 with colon cancer and shortly after. He had rectal bleeding about 3 weeks ago and underwent a colonoscopy which did reveal the low rectal cancer confirmed by biopsy on an MRI that was done today. It was determined to be a T3N1 and it isinvading into the internal sphincter muscles. On exam, this was also inseparable from the top of the sphincters and it is extremely low in the anal canal. With this and MRI findings, my recommendation is to proceed with neoadjuvant chemoradiation followed by robotic abdominoperineal resection with creation of an end colostomy. We will pencil him down once we know the date of the completion which will be about 8-10 weeks from the completion date. Thank you again for allowing me to participate in Mr. Mcdonald' healthcare and please do not hesitateto contact me if you have further questions. Sincerely yours, Yajaira Martin M.D. Department of Colorectal Surgery cc:MD Nhan Lopez DO Date Dictated: 04/11/2016 Date Typed: palak 04/12/2016 JOB# [id number] documented in this encounter Plan of Treatment Not on file documented as of this encounter Visit Diagnoses Not on filedocumented in this encounter Care Teams Law Office Receptionist Relationship Specialty Start Date End Date Nhan Lorenzo DO PCP - General Family Medicine 03/20/16 documented as of this encounter
--- OUTSIDE RECORDS SUMMARY | 2024-08-22 11:49 | XMS_ITS | CCD ---
Author Organization [facility] Care Team Providers Care 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 Name Role Phone Nhan Bentley Primary Care Provider ANDREA SIMON Referring Unavailable NHAN BENTLEY Primary Care Unavailable ANDREA SIMON Referring Unavailable NHAN BENTLEY Primary Care Unavailable ARLEY, DR GAGE Mejia Consulting Unavailable KRYSTLE KINCAID [facility] Care Unavailable JUVENTINO, DR KIRK Attending Unavailable JUVENTINO, DR KIRK Admitting Unavailable JUVENTINO, DR KIRK Consulting Unavailable Richie, NURSING CLERK-C Krystle Wild Primary Care Provider MD Nathan Meng Attending Provider [phone] Nathan Meng Attending Unavailable Nathan Meng Admitting Unavailable Krystle Kincaid Primary Care Unavailable Nhan Bentley DO Primary Care Provider Medications Current Medications Medication Drug Class(es) Dates Sig (Normalized) Sig (Original) acetaminophen 500 mg oral tablet (1 source) take 1 tablet by mouth every eight hours as needed acetaminophen (TYLENOL EXTRA STRENGTH) 500 mg tablet Take 500 mg by mouth every 8 hours as needed. Active enteric contrast (will be provided with radiology test) (1 source) Start: 12-18-2019 enteric contrast (will be provided with radiology test) For CT CHESTABD/PEL W IVCON Routine order Administer, As Directed One Time Only, via Oral, Rectal, both Oral and Rectal, Enteric Tube, Stoma or Indwelling Catheter, Enteric Contrast as designated per enteric contrast guidelines 1 Each 12/18/2019 Active iv contrast (will be provided with radiology test) (1 source) Start: 12-18-2019 iv contrast (will be provided with radiology [...] CT contrast administration guidelines link. 1 Each 12/18/2019 Active Problems Active Problems Problem Classification Problem Date Documented Da te Episodic/Chronic Cancer of rectum and anus (2 sources) Malignant tumor of rectum; Translations: [Malignant neoplasm of rectum] Onset: 04-05-2016 01-26-2020 Chronic Osteoarthritis (1 source) Unspecified osteoarthritis, unspecified site; Translations: [Unspecified osteoarthritis, unspecified site] Onset: 10-29-2022 Chronic Other gastrointestinal disorders (1 source) Colostomy present; Translations: [Colostomy status] Onset: 08-08-2016 08-08-2016 Chronic Other non-traumatic joint disorders (1 source) Hip pain; Translations: [Hip pain, left] Episodic Past or Other Problems Problem Classification Problem Date Documented Date Episodic/Chronic Other nervous system disorders (1 source) Postoperative pain ; Translations: [Other acute postprocedural pain] Onset: 08-08-2016 08-08-2016 Episodic Results Test Name Value Interpretation Reference Range Facility [facility] 02-28-2024 [facility] Telephone ([facility]) ---- LIAN MCDONALD ([id number]) 1965 M Date Time Provider Department 02/28/24 Robles YOUNGER During your visit today, we recorded the following information about you: Feliz Fernandez 02/28/2024 3:09 PM Signed Lian Mcdonald [phone], request supply order be faxed to [facility] [phone]. Very nervous about running out. He just found out about change in supply company. Jillian Peterson, MAXIMINO 02/28/2024 3:35 PM Signed Pulp Beater spoke with pt regarding obtaining ostomy supplies. Pt has not been seen by Dr Younger since 2016. Pulp Beater asked if pt has a PCP that can sign off on his supplies as he needs to be assessed once a year for insurance to cover supplies. Pt verbalized that he does not have a PCP or a local physician that follows his care on a yearly basis. Last Oncology note stated that pt was to be followed by GI for colonoscopies via his stoma per rectal cancer surveillance protocol. Pt stated that he does not see GI and has not gotten a colonoscopy since 2019. Pulp Beater asked pt if he would be willing to come and be assessed by a nurse practitioner here at [facility] in order to obtain supplies. Pt verbalized no and hung up on sign writer hand. Allergies As of Date: 02/28/2024 (No Known Allergies) Date Reviewed: 12/18/2019 Reviewed by: Zahida Johnson - Fully Assessed Reason for Visit: [facility] Supplies [3644] Prescriptions as of 02/28/2024 - acetaminophen (TYLENOL EXTRA STRENGTH) 500 mg tablet Take 500 mg by mouth every 8 hours as needed. - iv contrast (will be provided with radiology [...] in the CT contrast administration guidelines link. - enteric contrast (will be provided with radiology test) For CT CHESTABD/PEL W IVCON Routine order Administer, As Directed One Time Only, via Oral, Rectal, both Oral and Rectal, Enteric Tube, Stoma or Indwelling Catheter, Enteric Contrast as designated per enteric contrast guidelines Problem List As Of Date 02/28/2024 Noted Resolved Rectal cancer (HCC) [C20] 04/05/2016 Post-op pain [G89.18] 08/08/[address] (HCC) [Z93.3] 08/08/2016 Encounter Status:Closed by FELIZ FERNANDEZ on 02/28/24 Normal [facility] Alanine aminotransferase [En zymatic activity/volume] in Serum or PlasmaOrdered By: Nathan Meng on 10-29-2022 ALT [Catalytic activity/Vol] 15 U/L 7-52 [facility] Albumin [Mass/volume] in Ser um or Plasma by Bromocresol green (BCG) dye binding methoOrdered By: Nathan Meng on 10-29-2022 Albumin BCG dye [Mass/Vol] 4.3 g/dL 3.5-5.7 [facility] Alkaline phosphatase [Enzyma tic activity/volume] in Serum or PlasmaOrdered By: Nathan Meng on 10-29-2022 ALP [Catalytic activity/Vol] 95 U/L 34-104 [facility] Aspartate aminotransferase [ Enzymatic activity/volume] in Serum or PlasmaOrdered By: Nathan Meng on 10-29-2022 AST [Catalytic activity/Vol] 18 U/L 13-39 [facility] Basophils Auto (Bld) [#/Vol] Ordered By: Nathan Meng on 10-29-2022 Basophils (Bld) [#/Vol] 0.1 10*3/uL 0.0-0.2 [facility] Basophils/100 WBC Auto (Bld) Ordered By: Nathan Meng on 10-29-2022 Basophils/100 WBC (Bld) 1.0 % . [facility] Bilirubin.total [Mass/volume ] in Serum or PlasmaOrdered By: Nathan Meng on 10-29-2022 Bilirubin [Mass/Vol] 0.6 mg/dL 0.3-1.0 [facility] [place] Calcium [Mass/volume] in Ser um or PlasmaOrdered By: Nathan Meng on 10-29-2022 Calcium [Mass/Vol] 9.4 mg/dL 8.6-10.3 [facility] Carbon dioxide, total [Moles /volume] in Serum or PlasmaOrdered By: Nathan Meng on 10-29-2022 CO2 [Moles/Vol] 29.7 mmol/L 21.0-31.0 [facility] Chloride [Moles/volume] in S tee or PlasmaOrdered By: Nathan Meng on 10-29-2022 Chloride [Moles/Vol] 108 mmol/L 98-107 [facility] [place] Complete Blood Count Auto Di ffon 10-29-2022 Basophils (Bld) [#/Vol] 0.1 10*3/uL Normal 0.0-0.2 [facility] Comment on above: Performed By: #### C MP, ESR, CBC #### [facility] [address] [place] [address] [place] Basophils/100 WBC (Bld) 1.0 % Normal . [facility] Comment on above: Performed By: #### C MP, ESR, CBC #### [facility] [address] Eosinophils (Bld) [#/Vol] 0.1 10*3/uL Normal 0.0-0.45 [facility] Comment on above: Performed By: #### C MP, ESR, CBC #### [place] [address] [place] Eosinophils/100 WBC (Bld) 1.8 % Normal . [facility] Comment on above: Performed By: #### C MP, ESR, CBC #### [address] Erythrocyte distribution width (RBC) [Ratio] 13.8 % Normal 12.0-14.8 [facility] Comment on above: Performed By: #### C MP, ESR, CBC #### [address] Hematocrit (Bld) [Volume fraction] 39.4 % Normal 38.8-50.0 [facility] Comment on above: Performed By: #### C MP, ESR, CBC #### [place] [address] [place] Hemoglobin (Bld) [Mass/Vol] 13.3 g/dL Normal 13.0-17.0 [facility] Comment on above: Performed By: #### C MP, ESR, CBC #### [place] [address] [place] Lymphocytes (Bld) [#/Vol] 1.8 10*3/uL Normal 1.00-4.8 [facility] Comment on above: Performed By: #### C MP, ESR, CBC #### [place] [address] [place] Lymphocytes/100 WBC (Bld) 26.4 % Normal . [facility] Comment on above: Performed By: #### C MP, ESR, CBC #### [address] MCH (RBC) [Entitic mass] 30.8 pg Normal 27.5-35.2 [facility] Comment on above: Performed By: #### C MP, ESR, CBC #### [address] MCV (RBC) [Entitic vol] 91.4 fL Normal 83.5-101 [facility] Comment on above: Performed By: #### C MP, ESR, CBC #### [address] Mean Corpuscular HGB Conc 33.7 g/dL Normal 32.5-35.6 [facility] Comment on above: Performed By: #### C MP, ESR, CBC #### [address] Monocytes (Bld) [#/Vol] 0.4 10*3/uL Normal 0.0-0.8 [facility] Comment on above: Performed By: #### C MP, ESR, CBC #### [address] Monocytes/100 WBC (Bld) 6.3 % Normal . [facility] Comment on above: Performed By: #### C MP, ESR, CBC #### [address] Neutrophils (Bld) [#/Vol] 4.3 10*3/uL Normal 1.8-7.7 [facility] Comment on above: Performed By: #### C MP, ESR, CBC #### [address] Neutrophils/100 WBC (Bld) 64.5 % Normal . [facility] Comment on above: Performed By: #### C MP, ESR, CBC #### [address] NRBC% 0.1 /100{WBC} Normal 0-0.5 [facility] Comment on above: Performed By: #### C MP, ESR, CBC #### [address] Platelet mean volume (Bld) [Entitic vol] 7.3 fL Normal 6.6-10.1 [facility] Comment on above: Performed By: #### C MP, ESR, CBC #### [address] Platelets (Bld) [#/Vol] 284 10*3/uL Normal 150-450 [facility] Comment on above: Performed By: #### C MP, ESR, CBC #### [address] RBC (Bld) [#/Vol] 4.31 10*6/uL Normal 3.90-5.[address] [facility] Comment on above: Performed By: #### C MP, ESR, CBC #### [address] WBC (Bld) [#/Vol] 6.7 10*3/uL Normal 4.1-10.5 [facility] Comment on above: Performed By: #### C MP, ESR, CBC #### [address] Comprehensive Metabolic Pane kandi 10-29-2022 Albumin [Mass/Vol] 4.3 g/dL Normal 3.5-5.7 [facility] Comment on above: Performed By: #### C MP, ESR, CBC #### [address] Albumin/Globulin [Mass ratio] 1.7 {ratio} Normal [facility] Comment on above: Performed By: #### C MP, ESR, CBC #### [address] ALP [Catalytic activity/Vol] 95 U/L Normal 34-104 [facility] Comment on above: Result Comment: PERF ORMED BY: [place] [address] PATHOLOGIST BRIGHT CUTTER GILDA HASSAN M.D. Performed By: #### C MP, ESR, CBC #### [address] ALT [Catalytic activity/Vol] 15 U/L Normal 7-52 [facility] Comment on above: Performed By: #### C MP, ESR, CBC #### [address] Anion gap [Moles/Vol] 8.7 mmol/L Normal 6.0-15.[address] [facility] Comment on above: Performed By: #### C MP, ESR, CBC #### [address] AST [Catalytic activity/Vol] 18 U/L Normal 13-39 [facility] Comment on above: Performed By: #### C MP, ESR, CBC #### [address] Bilirubin [Mass/Vol] 0.6 mg/dL Normal 0.3-1.0 [facility] [place] Comment on above: Performed By: #### C MP, ESR, CBC #### [address] Calcium [Mass/Vol] 9.4 mg/dL Normal 8.6-10.3 [facility] Comment on above: Performed By: #### C MP, ESR, CBC #### [address] Chloride [Moles/Vol] 108 mmol/L High 98-107 [facility] [place] Comment on above: Performed By: #### C MP, ESR, CBC #### [address] CO2 [Moles/Vol] 29.7 mmol/L Normal 21.0-31.0 [facility] Comment on above: Performed By: #### C MP, ESR, CBC #### [address] Creatinine [Mass/Vol] 1.02 mg/dL Normal 0.70-1.[address] [facility] Comment on above: Performed By: #### C MP, ESR, CBC #### [facility] [address] GFR/1.73 sq M.predicted MDRD (S/P/Bld) [Vol rate/Area] mL/min/{1.73_m2} Normal [facility] Comment on above: Performed By: #### C MP, ESR, CBC #### [facility] [address] Globulin (S) [Mass/Vol] 2.6 g/dL Normal [facility] Comment on above: Performed By: #### C MP, ESR, CBC #### [address] Glucose [Mass/Vol] 73 mg/dL Normal 70-100 [facility] Comment on above: Result Comment: [place] Glucose Reference Range is dependent on time and content of last meal. Glucose of more than 200 mg/dL in a nonstressed, ambulatory subject supports the diagnosis of Diabetes Mellitus. ADA recommended reference range Performed By: #### C MP, ESR, CBC #### [address] Potassium [Moles/Vol] 4.4 mmol/L Normal 3.5-5.[address] [facility] Comment on above: Performed By: #### C MP, ESR, CBC #### [facility] [address] Protein [Mass/Vol] 6.9 g/dL Normal 6.4-8.9 [facility] Comment on above: Performed By: #### C MP, ESR, CBC #### [facility] [address] Sodium [Moles/Vol] 142 mmol/L Normal 136-145 [facility] Comment on above: Performed By: #### C MP, ESR, CBC #### [facility] [address] [place] [address] [place] Urea nitrogen [Mass/Vol] 10 mg/dL Normal 7-25 [facility] Comment on above: Performed By: #### C MP, ESR, CBC #### [facility] [address] [place] [address] Creatinine [Mass/volume] in Serum or PlasmaOrdered By: Nathan Meng on 10-29-2022 Creatinine [Mass/Vol] 1.02 mg/dL 0.70-1.[address] [facility] Eosinophils Auto (Bld) [#/Vo l]Ordered By: Nathan Meng on 10-29-2022 Eosinophils (Bld) [#/Vol] 0.1 10*3/uL 0.0-0.45 [facility] Eosinophils/100 WBC Auto (Bl d)Ordered By: Nathan Meng on 10-29-2022 Eosinophils/100 WBC (Bld) 1.8 % . [facility] Erythrocyte Sedimentation Ra manoj 10-29-2022 ESR (Bld) [Velocity] 15 mm/h Normal 0-19 [facility] [place] Comment on above: Result Comment: PERF ORMED BY: [place] [address] PATHOLOGIST BRIGHT CUTTER GILDA HASSAN M.D. Performed By: #### C MP, ESR, CBC #### [address] Erythrocyte distribution wid th Auto (RBC) [Ratio]Ordered By: Nathan Meng on 10-29-2022 Erythrocyte distribution width (RBC) [Ratio] 13.8 % 12.0-14.8 [facility] Erythrocyte sedimentation ra te by Photometric methodOrdered By: Nathan Meng on 10-29-2022 ESR Photometric method (Bld) [Velocity] 15 mm/hr 0-19 [facility] Globulin Calc (S) [Mass/Vol] Ordered By: Nathan Meng on 10-29-2022 Globulin (S) [Mass/Vol] 2.6 g/dL [facility] Glucose [Mass/volume] in Ser um or PlasmaOrdered By: Nathan Meng on 10-29-2022 Glucose [Mass/Vol] 73 mg/dL 70-100 [facility] Comment on above: ADA recommended refe rence rangeRandom Glucose Reference Range is dependent on time and content of last meal. Glucose of more than 200 mg/dL in a nonstressed, ambulatory subject supports the diagnosis of Diabetes Mellitus. Hematocrit Auto (Bld) [Volum e fraction]Ordered By: Nathan Meng on 10-29-2022 Hematocrit (Bld) [Volume fraction] 39.4 % 38.8-50.0 [facility] Hemoglobin [Mass/volume] in BloodOrdered By: Nathan Meng on 10-29-2022 Hemoglobin (Bld) [Mass/Vol] 13.3 g/dL 13.0-17.0 [facility] Leukocytes [#/volume] correc stephanie for nucleated erythrocytes in Blood by Automated counOrdered By: Nathan Meng on 10-29-2022 WBC corrected for nucl RBC Auto (Bld) [#/Vol] 6.7 10*3/uL 4.1-10.5 [facility] Lymphocytes Auto (Bld) [#/Vo l]Ordered By: Nathan Meng on 10-29-2022 Lymphocytes (Bld) [#/Vol] 1.8 10*3/uL 1.00-4.8 [facility] Lymphocytes/100 WBC Auto (Bl d)Ordered By: Nathan Meng on 10-29-2022 Lymphocytes/100 WBC (Bld) 26.4 % . [facility] MCH Auto (RBC) [Entitic mass ]Ordered By: Nathan Meng on 10-29-2022 MCH (RBC) [Entitic mass] 30.8 pg 27.5-35.2 [facility] MCHC Auto (RBC) [Mass/Vol]Or dered By: Nathan Meng on 10-29-2022 MCHC (RBC) [Mass/Vol] 33.7 g/dL 32.5-35.[address] [facility] MCV Auto (RBC) [Entitic vol] Ordered By: Nathan Meng on 10-29-2022 MCV (RBC) [Entitic vol] 91.4 fL 83.5-101 [facility] Monocytes Auto (Bld) [#/Vol] Ordered By: Nathan Meng on 10-29-2022 Monocytes (Bld) [#/Vol] 0.4 10*3/uL 0.0-0.8 [facility] Monocytes/100 WBC Auto (Bld) Ordered By: Nathan Meng on 10-29-2022 Monocytes/100 WBC (Bld) 6.3 % . [facility] Neutrophils Auto (Bld) [#/Vo l]Ordered By: Nathan Meng on 10-29-2022 Neutrophils (Bld) [#/Vol] 4.3 10*3/uL 1.8-7.7 [facility] Neutrophils/100 WBC Auto (Bl d)Ordered By: Nathan Meng on 10-29-2022 Neutrophils/100 WBC (Bld) 64.5 % . [facility] No Panel InformationOrdered By: Nathan Meng on 10-29-2022 Estimated GFR (CKD-EPI) > 60.0 mL/Min [facility] Creatinine Clearance (Chem N/A [facility] Nucleated erythrocytes [Pres ence] in Blood by Automated countOrdered By: Nathan Meng on 10-29-2022 Nucleated RBC Auto Ql (Bld) 0.1 /100{WBC} 0-0.5 [facility] Platelet mean volume Auto (B ld) [Entitic vol]Ordered By: Nathan Meng on 10-29-2022 Platelet mean volume (Bld) [Entitic vol] 7.3 fL 6.6-10.1 [facility] Platelets Auto (Bld) [#/Vol] Ordered By: Nathan Meng on 10-29-2022 Platelets (Bld) [#/Vol] 284 10*3/uL 150-450 [facility] Potassium [Moles/volume] in Serum or PlasmaOrdered By: Nathan Meng on 10-29-2022 Potassium [Moles/Vol] 4.4 mmol/L 3.5-5.[address] [facility] Protein [Mass/volume] in Ser um or PlasmaOrdered By: Nathan Meng on 10-29-2022 Protein [Mass/Vol] 6.9 g/dL 6.4-8.9 [facility] RBC Auto (Bld) [#/Vol]Ordere d By: Nathan Meng on 10-29-2022 RBC (Bld) [#/Vol] 4.31 10*6/uL 3.90-5.[address] [facility] Serum or plasma albumin/glob ulin mass ratioOrdered By: Nathan Meng on 10-29-2022 Albumin/Globulin [Mass ratio] 1.7 {ratio} [facility] Serum or plasma anion gap de terminationOrdered By: Nathan Velásquezrow on 10-29-2022 Anion gap [Moles/Vol] 8.7 mmol/L 6.0-15.[address] [facility] Sodium [Moles/volume] in Ser um or PlasmaOrdered By: Nathan Velásquezrow on 10-29-2022 Sodium [Moles/Vol] 142 mmol/L 136-145 [facility] Urea nitrogen [Mass/volume] in Serum or PlasmaOrdered By: Nathan Juventino on 10-29-2022 Urea nitrogen [Mass/Vol] 10 mg/dL 7-25 [facility] WBC Auto (Bld) [#/Vol]Ordere d By: Nathan Velásquezrow on 10-29-2022 WBC (Bld) [#/Vol] 6.7 10*3/uL 4.1-10.5 [facility] ALDOLASEon 07-16-2022 Aldolase 3.9 U/L Normal 3.3-10.3 [facility] Comment on above: Performed By: #### A LDOLAS #### [facility] [address] [place], [place] [address] Dr. Zhanna Valentin LLOYD by IFAon 07-16-2022 Antinuclear Antibodies, IFA Negative Normal [facility] Comment on above: Result Comment: Nega tive <1:80 Borderline 1:80 Positive >1:80 ICAP nomenclature: AC-0 For more information about Hep-2 cell patterns use ANApatterns.org, the official website for the International Consensus on Antinuclear Antibody (LLOYD) Patterns (ICAP). Performed By: #### A NAIFA ####[facility] [address] [place], [place] [address]FpDr. Zhanna Valentin CBC AUTO DIFFon 05-12-2023 BASO # 0.1 103/ul Normal 0.0-0.1 [facility] Comment on above: Performed By: #### C BC ####[facility] [address] [place] [address]DrNubia Valentin Basophils/100 WBC (Bld) 1.0 % Normal 0.2-2.0 [facility] Comment on above: Performed By: #### C BC ####[facility] [address] [place], [place] [address]DrNubia Valentin EO # 0.1 103/ul Normal 0.0-0.7 [facility] Comment on above: Performed By: #### C BC ####[facility] [address] [place], [place] [address]DrNubia Valentin Eosinophils/100 WBC (Bld) 2.1 % Normal 0.9-7.0 [facility] Comment on above: Performed By: #### C BC ####[facility] [address] [place], [place] [address]DrNubia Valentin Erythrocyte distribution width (RBC) [Ratio] 13.2 % Normal 11.0-15.0 [facility] Comment on above: Performed By: #### C BC ####[facility] [address] [place], [place] [address]DrNubia Valentin Hematocrit (Bld) [Volume fraction] 38.8 % Critically low 42.0-54.0 [facility] Comment on above: Performed By: #### C BC ####[facility] [address] [place], [place] [address]DrNubia Valentin Hemoglobin (Bld) [Mass/Vol] 13.2 g/dL Critically low 14.0-18.0 [facility] Comment on above: Performed By: #### C BC ####[facility] [address] [place], [place] [address]DrNubia Valentin IG # 0.01 10e3/ul Normal 0.00-0.03 [facility] Comment on above: Performed By: #### C BC ####[facility] [address] [place], [place] [address]Dr. Zhanna Valentin IG % 0.2 % Normal 0.0-0.5 [facility] Comment on above: Performed By: #### C BC ####[facility] [address] [place] [address]DrNubia Valentin LYMPH # 1.9 103/ul Normal 1.2-3.8 [facility] Comment on above: Performed By: #### C BC ####[facility] [address] [place] [address]DrNubia Valentin Lymphocytes/100 WBC (Bld) 30.1 % Normal 20.5-60.0 [facility] Comment on above: Performed By: #### C BC ####[facility] [address] [place], [place] [address]DrNubia Valentin MANUAL DIFF REQ NO Normal [facility] Comment on above: Performed By: #### C BC ####[facility] [address] [place] [address]DrNubia Valentin MCH (RBC) [Entitic mass] 30.8 pg Normal 25.9-34.0 [facility] Comment on above: Performed By: #### C BC ####[facility] [address] [place], [place] [address]DrNubia Valentin MCHC (RBC) [Mass/Vol] 34.0 g/dL Normal 29.9-35.2 [facility] Comment on above: Performed By: #### C BC ####[facility] [address] [place], [place] [address]DrNubia Valentin MCV (RBC) [Entitic vol] 90.7 fL Normal 80.0-94.0 [facility] Comment on above: Performed By: #### C BC ####[facility] [address] [place], [place] [address]DrNubia Valentin MONO # 0.4 103/ul Normal 0.3-0.8 [facility] Comment on above: Performed By: #### C BC ####[facility] [address] [place], [place] [address]DrNubia Valentin Monocytes/100 WBC (Bld) 6.7 % Normal 1.7-12.0 [facility] Comment on above: Performed By: #### C BC ####[facility] [address] [place] [address]Dr. Zhanna Valentin NEUT # 3.7 103/ul Normal 1.4-6.5 [facility] Comment on above: Performed By: #### C BC ####[facility] [address] [place] [address]Dr. Zhanna Valentin Neutrophils/100 WBC (Bld) 59.9 % Normal 43.0-75.0 [facility] Comment on above: Performed By: #### C BC ####[facility] [address] [place] [address]DrNubia Valentin Platelet mean volume (Bld) [Entitic vol] 9.0 fL Critically low 9.5-13.5 [facility] Comment on above: Performed By: #### C BC ####[facility] [address] [place] [address]Dr. Zhanna Homero PLT 279 103/ul Normal 150-450 [facility] Comment on above: Performed By: #### C BC ####[facility] [address] [place] [id number] Valentin RBC 4.28 106/ul Critically low 4.70-6.10 [facility] Comment on above: Performed By: #### C BC ####[facility] [address] [place] [id number] Valentin WBC 6.2 103/ul Normal 4.0-11.0 [facility] Comment on above: Performed By: #### C BC ####[facility] [address] [place] [id number]. Zhanna Valentin CPKon 07-13-2022 CK [Catalytic activity/Vol] 141 U/L Normal [phone] [facility] Comment on above: Performed By: #### T SH, CRP, CMP, CK, NORY #### [facility] [id number] Zhanna Valentin CRPon 07-13-2022 CRP 0.4 mg/dL Normal <=1.0 [facility] Comment on above: Performed By: #### T SH, CRP, CMP, CK, NORY #### [facility] [address] [address] [address] Zhanna Valentin FREE T4on 07-13-2022 Free T4 [Mass/Vol] 1.02 ng/dL Normal 0.76-1.46 [facility] Comment on above: Performed By: #### F T4 ####[facility] [address] [address]Dr. Zhanna Valentin MYOGLOBINon 07-13-2022 NORY 52 ng/mL Normal 16-96 [facility] Comment on above: Performed By: #### T SH, CRP, CMP, CK, NORY #### [facility] [address] [place] [address] Dr. Zhanna Valentin PROF 14(COMP METB)on 023 Albumin [Mass/Vol] 3.7 g/dL Normal 3.4-5.0 [facility] Comment on above: Performed By: #### T SH, CRP, CMP, CK, NORY #### [facility] [address] [place] [address] Dr. Zhanna Valentin Albumin/Globulin [Mass ratio] 1.0 {ratio} Normal [facility] Comment on above: Performed By: #### T SH, CRP, CMP, CK, NORY #### [facility] [address] [address] [address] Zhanna Valentin ALP [Catalytic activity/Vol] 110 U/L Normal 46-116 [facility] Comment on above: Performed By: #### T SH, CRP, CMP, CK, NORY #### [facility] [address] [address] [address] Zhanna Valentin ALT [Catalytic activity/Vol] 21 U/L Normal 16-63 [facility] Comment on above: Performed By: #### T SH, CRP, CMP, CK, NORY #### [facility] [address] [place] [address] Dr. Zhanna Valentin Anion gap [Moles/Vol] 6.8 mmol/L Normal [facility] Comment on above: Performed By: #### T SH, CRP, CMP, CK, NORY #### [facility] [address] [address] [address] Zhanna Valentin AST [Catalytic activity/Vol] 18 U/L Normal 15-37 [facility] Comment on above: Performed By: #### T SH, CRP, CMP, CK, NORY #### [facility] [address] [address] [address] Zhanna Valentin Bilirubin [Mass/Vol] 0.6 mg/dL Normal 0.2-1.0 [facility] Comment on above: Performed By: #### T SH, CRP, CMP, CK, NORY #### [facility] [address] [address] [address] Zhanna Valentin Calcium [Mass/Vol] 9.0 mg/dL Normal 8.5-10.1 [facility] Comment on above: Performed By: #### T SH, CRP, CMP, CK, NORY #### [facility] [address] [address] [address] Zhanna Valentin Chloride [Moles/Vol] 105 mmol/L Normal 98-107 [facility] Comment on above: Performed By: #### T SH, CRP, CMP, CK, NORY #### [facility] [address] [address] [address] Zhanna Valentin CO2 [Moles/Vol] 29.7 mmol/L Normal 21.0-32.0 [facility] Comment on above: Performed By: #### T SH, CRP, CMP, CK, NORY #### [facility] [address] [address] [address] Zhanna Valentin Creatinine [Mass/Vol] 1.04 mg/dL Normal 0.70-1.30 [facility] Comment on above: Performed By: #### T SH, CRP, CMP, CK, NORY #### [facility] [address] [address] [address] Zhanna Valentin EGFR-AF BHUTANESE >60 Normal >=60 [facility] Comment on above: Performed By: #### T SH, CRP, CMP, CK, NORY #### [facility] [address] [address] [address] Zhanna Valentin EGFR-NON AF BHUTANESE >60 Normal >=60 [facility] Comment on above: Performed By: #### T SH, CRP, CMP, CK, NORY #### [facility] [address] [address] [address] Zhanna Valentin Globulin (S) [Mass/Vol] 3.7 g/dL Normal T [facility] [place] [facility] Comment on above: Performed By: #### T SH, CRP, CMP, CK, NORY #### [facility] [address] [place] [address] Dr. Zhanna Valentin Glucose [Mass/Vol] 85 mg/dL Normal 74-106 [facility] Comment on above: Performed By: #### T SH, CRP, CMP, CK, NORY #### [facility] [address] [place] [address] Dr. Zhanna Valentin Potassium [Moles/Vol] 3.5 mmol/L Normal 3.5-5.1 [facility] Comment on above: Performed By: #### T SH, CRP, CMP, CK, NORY #### [facility] [address] [place] [address] Dr. Zhanna Valentin Protein [Mass/Vol] 7.4 g/dL Normal 6.4-8.2 [facility] Comment on above: Performed By: #### T SH, CRP, CMP, CK, NORY #### [facility] [address] [place] [address] Dr. Zhanna Valentin Sodium [Moles/Vol] 138 mmol/L Normal 136-145 [facility] Comment on above: Performed By: #### T SH, CRP, CMP, CK, NORY #### [facility] [address] [place] [address] Dr. Zhanna Valentin Urea nitrogen [Mass/Vol] 12.0 mg/dL Normal 7.0-18.0 [facility] Comment on above: Performed By: #### T SH, CRP, CMP, CK, NORY #### [facility] [address] [place], [place] [address] Dr. Zhanna Valentin Urea nitrogen/Creatinine [Mass ratio] 11.5 mg/mg Normal [facility] Comment on above: Performed By: #### T SH, CRP, CMP, CK, NORY #### [facility] [address] [place], [place] [address] Dr. Zhanna Valentin SED RATE WESTERGRENon 2022 SED RATE 13 mm/hr Normal <=20 [facility] Comment on above: Performed By: #### S EDR ####[facility] [address], [place] [address]SmDr. Zhanna Valentin TSHon 07-13-2022 TSH 1.641 uIU/mL Normal 0.358-3.740 [facility] Comment on above: Performed By: #### T SH, CRP, CMP, CK, NORY #### [facility] [address] [address] [address] Zhanna Valentin XR CHEST 2 Von 07-13-2022 XR CHEST 2 V EXAMINATION: XR CHEST 2 V HISTORY: Psoriatic arthritis COMPARISON: No relevant comparison available. FINDINGS: LUNGS: No significant pulmonary parenchymal abnormalities. VASCULATURE: No increased pulmonary vasculature. PLEURA: No pneumothorax, effusion, or pleural thickening. CARDIAC: No cardiomegaly or cardiac silhouette abnormality. MEDIASTINUM: No visible mass or adenopathy. BONES: Pectus excavatum. OTHER: Port-A-Cath projecting over upper left hemithorax with tip in superior vena cava near cavoatrial junction. IMPRESSION: 1. Clear lungs. No acute process or significant chronic interstitial changes. Electronically authenticated by: GAGE TUBBS Date: 2022-07-13 15:42 Normal [facility] XR FOOT CAROLINE MIN 3 VIEWSon XR FOOT CAROLINE MIN 3 VIEWS EXAMINATION: XR FOOT CAROLINE MIN 3 VIEWS HISTORY: Psoriatic arthritis COMPARISON: No relevant comparison available. FINDINGS: RIGHT FINDINGS: BONES: Mild narrowing and tiny periarticular osteophytes involving the first metatarsophalangeal joint. Irregularity of the head of the fifth proximal phalanx suspicious for remote trauma. SOFT TISSUES: No visible soft tissue swelling. OTHER: Negative. LEFT FINDINGS: BONES: Mild narrowing and tiny periarticular osteophytes involving first metatarsophalangeal joint. SOFT TISSUES: No visible soft tissue swelling. OTHER: Negative. IMPRESSION: RIGHT CONCLUSION: Mild degenerative changes; nonspecific. LEFT CONCLUSION: Mild degenerative changes; nonspecific. Electronically authenticated by: GAGE TUBBS Date: 2022-07-13 15:38 Normal [facility] XR WRIST CAROLINE MIN 3 Von 07-13 XR WRIST CAROLINE MIN 3 V EXAMINATION: XR HAND CAROLINE MIN 3V, XR WRIST CAROLINE MIN 3 V HISTORY: Psoriatic arthritis COMPARISON: No relevant comparison available. FINDINGS: RIGHT FINDINGS: BONES: Subtle bone erosions along the articular margins of the head of the first metatarsal, and suspected at the lateral base of the third proximal phalanx. SOFT TISSUES: No visible soft tissue swelling. OTHER: Negative. LEFT FINDINGS: BONES: Subtle bone erosions along the articular margins of the head of the first metatarsal, and suspected at the lateral base of the third proximal phalanx. SOFT TISSUES: No visible soft tissue swelling. OTHER: Negative. IMPRESSION: RIGHT CONCLUSION: Findings suggestive of early inflammatory arthritis; similar to left side. LEFT CONCLUSION: Findings suggest early inflammatory arthritis; similar to right side. Electronically authenticated by: GAGE TUBBS Date: 2022-07-13 15:36 Normal [facility] Physician Referralon 020 Physician Referral [phone]. [id number]:[id number] Normal [facility] [place] [facility] XR PELVIS (1-2 VIEWS)on 12-03 XR PELVIS (1-2 VIEWS) EXAM: XR PELVIS (1-2 VIEWS) HISTORY: M25.552 Left hip pain 1.5 months 54-year-old male. COMPARISON: CT abdomen and pelvis 11/08/2018. TECHNIQUE: AP pelvis. FINDINGS: Ostomy over the left lower quadrant of abdomen with contrast material in the colon. For the patient's age there is no significant degenerative change at the hips. Minimal degenerative change at the SI joints. Remainder normal. IMPRESSION: 1. Ostomy left lower quadrant of abdomen. 2. Minimal degenerative change at the SI joints. 3. The hips are normal for age. Interpreted by: Rafa Martinez Jr., MD Signed by: Rafa Martinez Jr., MD 12/31/19 Final result Normal [facility] 1. Ostomy left lower quadrant of abdomen. 2. Minimal degenerative change at the SI joints. 3. The hips are normal for age. [place] EXAM: XR PELVIS (1-2 VIEWS) HISTORY: M25.552 Left hip pain 1.5 months 54-year-old male. COMPARISON: CT abdomen and pelvis 11/08/2018. TECHNIQUE: AP pelvis. FINDINGS: Ostomy over the left lower quadrant of abdomen with contrast material in the colon. For the patient's age there is no significant degenerative change at the hips. Minimal degenerative change at the SI joints. Remainder normal. [place], [place] Sonny, [facility] Incoming Radiant Results From [facility] - 12/31/2019 2:21 PM EDT EXAM: XR PELVIS (1-2 VIEWS) HISTORY: M25.552 Left hip pain 1.5 months 54-year-old male. COMPARISON: CT abdomen and pelvis 11/08/2018. TECHNIQUE: AP pelvis. FINDINGS: Ostomy over the left lower quadrant of abdomen with contrast material in the colon. For the patient's age there is no significant degenerative change at the hips. Minimal degenerative change at the SI joints. Remainder normal. IMPRESSION: 1. Ostomy left lower quadrant of abdomen. 2. Minimal degenerative change at the SI joints. 3. The hips are normal for age. [place] Encounters Encounter Date Encounter Type Care Provider Facility Start: 02-28-2024 End: 02-28-2024 Telephone encounter I Emigdio Younger MD Work Phone: Colorectal Surgery Comment on above: [facility] [employer] Start: 10-29-2022 End: 10-29-2022 ambulatory Nathan Meng Facility:[facility] Start: 10-29-2022 End: 10-29-2022 ambulatory NURSING CLERK-C Krystle Kincaid Work Phone: [facility] Work Phone: Start: 10-29-2022 End: 10-29-2022 Patient encounter procedure NURSING CLERK-C Krystle Kincaid Work Phone: [facility] [address] Work Phone: Start: 07-13-2022 End: 07-14-[address] GAGE TUBBS Facility:[facility] Start: 12-31-2019 End: 01-03-2020 [facility] Start: 12-31-2019 End: 01-03-2020 Patient encounter procedure ANDREA XAVIER [facility] Start: 12-31-2019 End: 01-02-2020 Subsequent hospital visit by physician Fabrizio Additional Xray At [facility] Comment on above: Hip pain, left Start: 12-31-2019 End: 01-02-2020 Subsequent hospital visit by physician Nhan Bentley [facility]iology Procedures Date Procedure Procedure Detail Performing Clinician Start: 12-31-2019 Radiologic examinati on pelvis 1/2 views ANDREA SIMON Start: 12-31-2019 Radiologic examinati on pelvis 1/2 views Andrea Simon Work Phone: Plan of Treatment Date Care Activity Detail Author Start: 11-03-2023 Covid-19 Vaccine ( season) Covid-19 Vaccine ( season) [facility] Start: 11-03-2023 Influenza vaccination Influenza Vaccine (#1) [facility] Start: 12-17-2022 Diabetes Screening Diabetes Screening [facility] Start: 2021 Prostate specific antigen measurement Prostate Cancer Screening Discussion [facility] Start: 04-11-2021 Screening for malignant neoplasm of colon [facility] Start: 11-03-2019 Influenza vaccination Flu vaccine (#1) [place] Start: 2016 Pneumococcal Vaccine: 50+ (1 of 1 - PCV) Pneumococcal Vaccine: 50+ (1 of 1 - PCV) [facility] Start: 2016 Screening for malignant neoplasm of colon Colon cancer screen colonoscopy [place] Start: 2016 Shingles Vaccine (1 of 2) Shingles Vaccine (1 of 2) [place] Start: 2016 Shingrix Vaccine (1 of 2) Shingrix Vaccine (1 of 2) [facility] Start: 10-04-2011 Screening for malignant neoplasm of colon [facility] Start: 2006 Lipid panel Lipid screen [place] Start: 2001 Lipid panel Lipid Screening [facility] Start: 1985 DTaP/Tdap/Td vaccine (1 - Tdap) DTaP/Tdap/Td vaccine (1 - Tdap) [place] Start: 1985 Hepatitis B Vaccine (1 of 3 - 19+ 3-dose series) Hepatitis B Vaccine (1 of 3 - 19+ 3-dose series) [facility] Start: 1985 Urine microalbumin profile DTaP,Tdap,Td Vaccine (1 - Tdap) [facility] Start: 1984 Anxiety Screening Anxiety Screening [facility] Start: 1984 Depression Screening Depression Screening [facility] Start: 1984 Hepatitis C screening Hepatitis C Screening [facility] Start: 1984 HIV screening HIV Screening [facility] Start: 1981 HIV screening HIV screen [place], [place] Payers Date Payer Category Payer Self-pay [id number] 2019 Unknown [id number] 2011 Unknown MMO MMO [employer] PPO [id number] 2011-Present [phone] [address] [place] [address] PPO [id number] 1966 Unknown [id number] 1966 Unknown [id number] 1966 Unknown [id number] 1959 Unknown [id number] Unknown [id number] Social History Date Type Detail Facility Tobacco smoking stat us NHIS Unknown if ever smoked [facility] [place] Sex Assigned At Not on file [facility] [place] Start: 04-05-2016 End: 01-26-2020 Tobacco smoking status NHIS Ex-smoker (finding) [facility] Start: 1965 Sex Assigned At Male F [facility] History of tobacco use Current smoker [facility] History of tobacco use Cigarette Smoker [facility] [place] Start: 04-05-2016 End: 02-08-2020 Cigarettes smoked current (pack per day) - Reported 1.5 [facility] Start: 04-05-2016 Tobacco use and exposure User of smokeless tobacco [facility] History of tobacco use Snuff User [facility] Start: 12-18-2019 Alcoholic beverage intake Current drinker of alcohol (finding) [facility] Start: 12-18-2019 End: 02-08-2020 Tobacco use panel [facility] Adult Depression Screening Assessment 0 [facility] Start: 03-23-2016 Alcohol Comment daily [facility] Start: 06-12-2023 Gender identity Identifies as male gender (finding) [facility] Start: 06-12-2023 Sexual orientation Heterosexual (fin eileen) [facility] Telephone encounter Note 02-28-2024 Telephone Encounter - Jillian Peterson RN - 02/28/2024 3:25 PM EST Note Date & Type Note Facility 02-28-2024 Telephone encount er Note [facility] [facility] spoke with pt regarding obtaining ostomy supplies. Pt has not been seen by Dr Younger since 2016. [facility] asked if pt has a PCP that can sign off on his supplies as he needs to be assessed once a year for insurance to cover supplies. Pt verbalized that he does not have a PCP or a local physician that follows his care on a yearly basis. Last Oncology note stated that pt was to be followed by GI for colonoscopies via his stoma per rectal cancer surveillance protocol. Pt stated that he does not see GI and has not gotten a colonoscopy since 2019. [facility] asked pt if he would be willing to come and be assessed by a nurse practitioner here at main campus in order to obtain supplies. Pt verbalized no and hung up on sign writer hand. [facility] Note 02-28-2024 Telephone Encounter - Jillian Peterson RN - 02/28/2024 3:25 PM ESTTelephone Encounter - Vannessa Feliz Odell - 02/28/2024 3:06 PM EST Note Date & Type Note Facility 02-28-2024 Miscellaneous Notes Formattin g of this note might be different from the original. [facility] spoke with pt regarding obtaining ostomy supplies. Pt has not been seen by Dr Younger since 2017. [facility] asked if pt has a PCP that can sign off on his supplies as he needs to be assessed once a year for insurance to cover supplies. Pt verbalized that he does not have a PCP or a local physician that follows his care on a yearly basis. Last Oncology note stated that pt was to be followed by GI for colonoscopies via his stoma per rectal cancer surveillance protocol. Pt stated that he does not see GI and has not gotten a colonoscopy since 2019. [facility] asked pt if he would be willing to come and be assessed by a nurse practitioner here at [facility] in order to obtain supplies. Pt verbalized no and hung up on sign writer hand. Lian Mcdonald [phone], request supply order be faxed to [facility] [phone]. Very nervous about running out. He just found out about change in supply company. documented in this encounter [facility] Telephone encounter Note 02-28-2024 Telephone Encounter - Feliz Fernandez - 02/28/2024 3:06 PM EST Note Date & Type Note Facility 02-28-2024 Telephone encounter Note Lian Mcdonald [phone], request supply order be faxed to [facility] [phone]. Very nervous about running out. He just found out about change in supply company. [facility] Work Phone: Evaluation note Note Date & Type Note Facility Evaluation note No assessment information availa [facility] Work Phone: Assessments Diagnosis Hip pain, left Pain in joint, pelvic region and thigh Summary Purpose Family History No Family History Records Found Relationship Condition Age at Onset Recorded Date/T ayo father Malignant neoplasm of urinary bladder Unk nown Myocardial infarction Unknown Heart disease Unknown Not Specified Malignant neoplasm Unknown Advance Directives No Advanced Directives Records Found Advance Directive Response Recorded Date/ Time Advance Directives No January 3:17pm Documents on File Type Date 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 Advance Directive(s) 07/18/2016 3:19 PM Advance Directive(s) 07/18/2016 3:06 PM Chief Complaint and Reason for Visit Chief Complaint PsA/MEDS/OA Additional Source Comments (unrecognized sect ion and content) No Status Records FoundNo Status Records FoundNo Status Records FoundNo Status Records FoundNo Status Records Found INFORMATION SOURCE (unrecogn ized section and content) DATE CREATED AUTHOR 01/02/2020 [facility] DATE CREATED AUTHOR AUTHOR'S ORGANIZ ATION 03/03/2020 [facility] DATE CREATED AUTHOR AUTHOR'S ORGANIZ ATION [facility]/16/2022 [facility] DATE CREATED AUTHOR AUTHOR'S ORGANIZ ATION 11/08/2022 [facility] DATE CREATED AUTHOR AUTHOR'S ORGANIZ ATION 03/01/2024 [facility] Care Teams (unrecognized sec tion and content) Team Status: Active Member Role Status Dates Krystle Kincaid NP-Zelda Primary Care Provider Active Team Status: Inactive Member Role Status Dates Krystle Kincaid NP-Zelda Primary Care Provider Active Nathan Meng MD Attending Provider Active 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 Relationship Specialty Start Date End Date Nhan Bentley DO PCP - General Family Medicine 03/20/16 Goals (unrecognized section and content) Goals may be documented in a n alternate section Source Comments (unrecognize d section and content) In the event this informatio n is protected by the Federal Confidentiality of Alcohol and Drug Abuse Patient Records regulations: The Federal rules restrict any use of the information to criminally investigate or prosecute any alcohol or drug abuse patient.[facility] Reason for Visit (unrecogniz ed section and content) Reason Comments [facility] Supplies FOR RECORDS PERTAINING TO PATIENTS WHO ARE OR HAVE BEEN ENROLLED IN A CHEMICAL DEPENDENCY/SUBSTANCEABUSE PROGRAM, SOME INFORMATION MAY BE OMITTED. This clinical summary was aggregated from multiple sources. Caution should be exercised in using it in the provision of clinical care. This summary normalizes information from multiple sources, and as a consequence, information in this document may materially change the coding, format and clinical context of patient data. In addition, data may be omitted in some cases. CLINICAL DECISIONS SHOULD BE BASED ON THE PRIMARY CLINICAL RECORDS. [employer] provides no warranty or guarantee of the accuracy or completeness of information in this document.
--- OUTSIDE RECORDS SUMMARY | 2024-08-22 11:49 | XMS_ITS | Encounter Summary ---
Author Organization [facility] Address [address] [place] [id number] Care Team Providers Care Music Publisher Name Role Phone BjNhan DO Primary Care Provider Source Comments In the event this information is protected by the Federal Confidentiality of Alcohol and Drug AbusePatient Records regulations: The Federal rules restrict any use of the information to criminally investigate or prosecute any alcohol or drug abuse patient.[facility] Encounter Details Date Type Department Care Team (Late st Contact Info) Description 06/20/2018 Patient Msg Hematology/Oncology [address] [place] [address] [place] [address] Provider, [facility] RE: Appointment Cancellation Request Social History Tobacco [...] on filedocumented in this encounter Care Teams Music Publisher Relationship Specialty Start Date End Date Nhan Lorenzo DO PCP - General Family Medicine 03/20/16 documented as of this encounter
--- OUTSIDE RECORDS SUMMARY | 2024-08-22 11:49 | XMS_ITS | Encounter Summary ---
Author Organization [facility] Address [address] [place], [place] [id number] Care Team Providers Care Waitress Name Role Phone Bj, Nhan Avalos DO Primary Care Provider Source Comments In the event this information is protected by the Federal Confidentiality of Alcohol and Drug AbusePatient Records regulations: The Federal rules restrict any use of the information to criminally investigate or prosecute any alcohol or drug abuse patient.[facility] Encounter Details Date Type Department Care Team (Late st Contact Info) Description 08/22/2017 Patient Msg Hematology/Oncology [address] [place] [address] Sneha Garcia PA-C [address] [place] [address] Appointment Cancellation Request Social History Tobacco Use [...] on filedocumented in this encounter Care Teams Waitress Relationship Specialty Start Date End Date Nhan Lorenzo DO PCP - General Family Medicine 03/20/16 documented as of this encounter
--- NOTE | 2024-08-22 12:03 | ECG_ITS ---
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 Measurements Intervals [place] Rate: 65 P: 58 UT: 150 QRS: -25 QRSD: 90 T: 58 QT: 398 QTc: 410 Interpretive Statements 1100 Sinus rhythm 7202 Moderate left axis deviation Borderline ECG Compared to ECG 01/11/2021 20:42:46 Left-axis deviation now present Sinus tachycardia no longer present Electronically Signed On 08-23-2024 21:53:57 EDT by SATCY ROBB M.D.
[2024-08-22] MEDS: IPRATROPIUM/ALBUTEROL SULFATE 3 ML AMPUL.NEB IH (12:21)
[2024-08-22 12:34] LABS: Hematocrit 40.4 % (42.0-54.0); Hemoglobin 13.4 g/dL (14.0-18.0); Mean Corpuscular HGB Conc 33.2 g/dL (29.9-35.2); Mean Corpuscular Hemoglobin 29.4 pg (25.9-34.0); Mean Corpuscular Volume 88.6 fL (80.0-94.0); Mean Platelet Volume 9.3 fL (9.5-13.5); Platelet Count 240 10^3/uL (150-450); Red Blood Count 4.56 10^6/uL (4.70-6.10); Red Cell Distribution Width 13.5 % (11.0-15.0); White Blood Count 5.1 10^3/uL (4.0-11.0)
[2024-08-22 12:42] LABS: Anion Gap 15.3; BUN Creatinine Ratio 10.7; Calcium 8.7 mg/dL (8.5-10.1); Carbon Dioxide 26.5 mmol/L (21.0-32.0); Chloride 103 mmol/L (98-107); Estimated GFR (African America >60 (>=60 mL/min/1.73m^2); Estimated GFR (Non-African Ame 56 (>=60 mL/min/1.73m^2); Glucose 113 mg/dL (74-106); Potassium 3.8 mmol/L (3.5-5.1); Sodium 141 mmol/L (136-145)
--- NOTE | 2024-08-22 12:43 | ED_ITS ---
HPI HPI - General Adult General Chief complaint: Upper Respiratory Infection Stated complaint: COUGH Time Seen by Provider: 08/22/24 11:46 Source: patient Mode of arrival: walk-in Limitations: no limitations History of Present Illness HPI narrative: 58-year-old male to the emergency department chief complaint of cough for the last 2 months. Patient reports a persistent cough. It has not been worsening nor has it been improving. It is consistent throughout the day and night. Keeps him up. He denies any fever, sweats, chills. It is not productive. It is not associated with shortness of breath. He reports that a few times he coughed so hard that he almost passed out. It is interrupting his life. He has seen his primary care doctor for it several times. Chest x-ray was performed early on in the course and was negative. He has been on 2 rounds of antibiotics a course of steroids and several nmio-pcy-zqzlnof cough medications with no relief. He reports that none of these interventions affected the cough at all. He is here today out of frustration and urging of his to get further evaluation. He is a former smoker. He has a history of rectal cancer. Related Data Previous Rx's ?Medication ?Instructions ?Recorded albuterol sulfate 90 mcg/actuation 2 inh inhalation Q4 H PRN shortness 08/22/24 aerosol inhaler of breath or wheezing #6.7 g [place] amoxicillin 875 mg-potassium 1 tab PO Q12H #14 tabs clavulanate 125 mg tablet doxycycline monohydrate 100 mg 100 mg PO BID 7 days #1 4 caps 08/22/24 capsule ipratropium 0.5 mg-albuterol 3 mg 3 ml inhalation Q4H PRN shortness 08/22/24 (2.5 mg base)/3 mL nebulization of breath #90 mL soln prednisone 20 mg tablet 60 mg (3 x 20 mg) PO DAILY 5 days 08/22/24 #15 tabs Allergies Allergy/AdvReac Type Severity Reaction Status Date / Time No Known Drug Allergies Allergy Verified 08/22/24 11:45 Opioid HPI Opioid Management Most Recent Opioid Data: Last Pain Scale 2 Today, 11:45 Review of Systems ROS Status of ROS 10 or more systems reviewed and unremark able except as noted in history and below PFSH PFSH Social History Little interest or pleasure in doing things: not at all Feeling down, depressed, or hopeless: not at all Exam Narrative Exam Narrative: VITALS: I have reviewed the triage vital signs. GENERAL: Well developed, well appearing adult in no acute distress. NEURO: Alert and oriented. Moves all extremities. Face is symmetric and expressive. EYES: PERRL. No scleral icterus or conjunctival injection. No discharge. HENT: Normocephalic, atraumatic. Hearing is grossly intact. Nares grossly patent and without discharge. Mucous membranes moist. NECK: No JVD. Patient moves neck without restriction. CARDIO: Rhythm regular. Normal rate. No murmur, rub, or gallop. Pulses equal bilaterally in the upper and lower extremity. No lower extremity edema. PULM: Rhonchi that clear with coughing greatest in the left lower. no conversational dyspnea. No splinting, stridor, or accessory muscle use. EXTREMITIES: Symmetric muscle bulk. No joint swelling. No clubbing, cyanosis, or deformity. SKIN: Warm and dry. Normal turgor. No rash or lesions appreciated. PSYCH: Mood, affect, and interaction is appropriate to the setting. Constitutional Vital Signs, click to edit/add: Last Vital Signs Temp 97.3 F L 08/22/24 11:45 Pulse 72 08/22/24 13:50 Resp 18 08/22/24 13:50 BP 150/88 H 08/22/24 11:47 Pulse Ox 94 L 08/22/24 11:45 O2 Del Method Room Air 08/22/24 11:45 Course Vital Signs Vital signs: Vital Signs Temperature 97.3 F L 08/22/24 11:45 Pulse Rate 65 08/22/24 11:45 Respiratory Rate 14 08/22/24 11:45 Blood Pressure 150/88 H 08/22/24 11:45 Pulse Oximetry 94 L 08/22/24 11:45 Oxygen Delivery Method Room Air 08/22/24 11:45 Temperature 97.3 F L 08/22/24 11:45 Pulse Rate 72 08/22/24 13:50 Respiratory Rate 18 08/22/24 13:50 Blood Pressure 150/88 H 08/22/24 11:47 Pulse Oximetry 94 L 08/22/24 11:45 Oxygen Delivery Method Room Air 08/22/24 11:45 Medical Decision Making MDM Narrative Medical decision making narrative: 58-year-old male to the emergency department with chief complaint of persistent cough for the last 2 months. Vital stable, the patient is afebrile. He does have focal lung findings. He has already had negative chest x-rays. Will proceed with CT imaging. Lab work reviewed and noted. CT scan shows atypical pneumonia. He felt much improved with the breathing treatment. Will double cover with Augmentin and doxycycline. Short course of prednisone and breathing treatments as needed. He will follow-up with his PCP to ensure resolution. Return precautions were discussed. All questions were answered. The patient was discharged home. Medical Records Medical records reviewed: Yes I reviewed the patient's medical records Lab Data Lab results reviewed: Yes I reviewed the patient's lab results Labs: Lab Results 08/22/24 Range/Units 12:20 WBC 5.1 (4.0-11.0) 10^3/uL RBC 4.56 L (4.70-6.10) 10^6/uL Hgb 13.4 L (14.0-18.0) g/dL Hct 40.4 L (42.0-54.0) % MCV 88.6 (80.0-94.0) fL MCH 29.4 (25.9-34.0) pg MCHC 33.2 (29.9-35.2) g/dL RDW 13.5 (11.0-15.0) % Plt Count 240 (150-450) 10^3/uL MPV 9.3 L (9.5-13.5) fL Seg Neuts % (Manual) 53.0 (43.0-75.0) Lymphocytes % (Manual) 34.0 (20.5-60.0) % Atypical Lymphs % (Man) 4.0 % Monocytes % (Manual) 7.0 (1.7-12.0) % Eosinophils % (Manual) 1.0 (0.9-7.0) % Basophils % (Manual) 1.0 (0.2-2.0) % Neutrophils # (Manual) 2.70 (1.4-6.5) 10^3/uL Lymphocytes # (Manual) 1.73 (1.20-3.80) 10^3/uL Abs Atypical Lymphs Man 0.20 Monocytes # (Manual) 0.35 (0.30-0.80) 10^3/uL Eosinophils # (Manual) 0.05 (0.00-0.70) 10^3/uL Basophils # (Manual) 0.05 (0.00-0.10) 10^3/uL Sodium 141 (136-145) mmol/L Potassium 3.8 (3.5-5.1) mmol/L Chloride 103 (98-107) mmol/L Carbon Dioxide 26.5 (21.0-32.0) mmol/L Anion Gap 15.3 BUN 14.0 (7.0-18.0) mg/dL Creatinine 1.31 H (0.70-1.30) mg/dL Est GFR ( Amer) >60 (>=60 mL/min/1.73m^2) Est GFR (Non-Af Amer) 56 L (>=60 mL/min/1.73m^2) BUN/Creatinine Ratio 10.7 Glucose 113 H (74-106) mg/dL Calcium 8.7 (8.5-10.1) mg/dL Imaging Data CT scan - chest: Attestation: I have reviewed the pertinent imaging results. Radiologist's impression: See separate PACS ECG Data Attestation: I personally reviewed and interpreted this ECG as follows: (Normal sinus rhythm at a rate of 65. No STEMI. Normal QTc at 410.) Discharge Plan Discharge Chief Complaint: Upper Respiratory Infection Clinical Impression: Chronic cough, Atypical pneumonia Patient Disposition: Home, Self-Care Time of Disposition Decision: 14:46 Condition: Good Mode of Transportation: Private Vehicle Prescriptions / Home Meds: New prednisone 20 mg tablet 60 mg PO DAILY 5 Days Qty: 15 0RF doxycycline monohydrate 100 mg capsule 100 mg PO BID 7 Days Qty: 14 0RF amoxicillin-pot clavulanate 875-125 mg tablet 1 tab PO Q12H Qty: 14 0RF albuterol sulfate 90 mcg/actuation HFA aerosol inhaler 2 inh inhalation Q4H PRN (Reason: shortness of breath or wheezing) Qty: 6.7 0RF ipratropium-albuterol 0.5 mg-3 mg(2.5 mg base)/3 mL solution for nebulization 3 ml inhalation Q4H PRN (Reason: shortness of breath) Qty: 90 0RF Print Language: [place] Instructions: Community Acquired Pneumonia (ED) Additional Instructions: Call the office of your primary care doctor to arrange for follow-up within the above-stated timeframe. Your ED visit was focused on your acute issue and does not replace primary care. You should review your labs, imaging, and diagnoses from this ED visit with your primary care physician. There may be non-emergent/ incidental findings that need further evaluation. You should review your vital signs including blood pressure with your PCP. If you were prescribed medications you should discuss possible side-effects and drug interactions with your pharmacist. Call 911 or go to the nearest Emergency Department if you develop any new or worsening symptoms. Seek immediate medical attention if you develop: worsening shortness of breath, difficulty breathing, chest pain, nausea, vomiting, weakness, numbness, tingling, excessive sweating, loss of motion in your arms or legs, or any new or worsening symptoms. Referrals: MALCOM KINCAID [Primary Care Provider, Family Practice] - 1 week
[2024-08-22 12:58] LABS: Basophils Abs Manual 0.05 10^3/uL (0.00-0.10); Eosinophils Absolute Manual 0.05 10^3/uL (0.00-0.70); Lymphocytes Absolute Manual 1.73 10^3/uL (1.20-3.80); Monocytes Absolute Manual 0.35 10^3/uL (0.30-0.80)
== END 2024-08-22 15:05 | disposition home or self-care (01) ==
PROVIDERS: Emergency Provider Student in an Organized Health Care Education/Training Program; PCP Nurse Practitioner Family
DX: J18.9 Pneumonia, unspecified organism (principal); R05.3 Chronic cough; Z87.891 Personal history of nicotine dependence; Z85.048 Personal history of other malignant neoplasm of rectum, rectosigmoid junction, and anus
CPT/HCPCS: 36415; 71260; 80048; 85007; 85027; 93005; 94640; 99285; Q9967